=== PATIENT | female | born 1940 | race Caucasian/White ===

== ENCOUNTER → 2016-12-04 | Outpatient (CLI) | payer MEDICARE ==
--- NOTE | 2016-12-05 13:41 | MM ---
Reason for exam: screening (asymptomatic). Last mammogram was performed 1 year ago. History: Patient is postmenopausal and has history of other cancer at age 61. Family history of breast cancer in sister at age 77, breast cancer in sister at age 68, and breast cancer in paternal aunt at age 60. Benign excisional biopsy of both breasts. Taking estrogen for 27 years beginning at age 38. Physical Findings: A clinical breast exam by your physician is recommended on an annual basis and results should be correlated with mammographic findings. MG 3D Screening Mammo W/Cad Bilateral CC and MLO view(s) were taken. Prior study comparison: November 29, 2015, bilateral MG 3d screening mammo w/cad. November 25, 2014, bilateral MG screening mammo w CAD. There are scattered fibroglandular densities. Finding: There are vascular, round calcifications in both breasts. There is a chronic nodularity in the left breast. No significant changes in finding since November 29, 2015 and November 25, 2014. ASSESSMENT: Benign, BI-RAD 2 RECOMMENDATION: Routine screening mammogram of both breasts in 1 year.
== END | disposition home or self-care (01) ==
LOC: RADMAMWWP 12:47
PROVIDERS: ATTEND Internal Medicine
DX: Z12.31 Encounter for screening mammogram for malignant neoplasm of breast (principal)
CPT/HCPCS: 77063; G0202

== ENCOUNTER → 2017-08-24 | Outpatient (CLI) | payer MEDICARE ==
[2017-08-24 13:38] LABS: Anisocytosis Slight; Basophils % (A) 1 %; Eosinophils # (A) 0.1 k/uL (0-0.7); Eosinophils % (A) 2 %; HCT 37.9 % (34.0-46.0); HGB 13.3 gm/dL (11.4-16.0); Lymphocytes # (A) 2.5 k/uL (1.0-4.8); Lymphocytes % (A) 36 %; MCH 32.3 pg (25.0-35.0); MCV 92.4 fL (80.0-100.0); Mean Platelet Volume 6.6; Monocytes # (A) 0.2 k/uL (0-1.0); Monocytes % (A) 4 %; Neutrophils # (A) 3.9 k/uL (1.3-7.7); Neutrophils % (A) 57 %; Platelet Count 362 k/uL (150-450); RDW 16.7 % (11.5-15.5); WBC 6.9 k/uL (3.8-10.6)
== END | disposition home or self-care (01) ==
LOC: LABPAT 12:47
PROVIDERS: ATTEND Obstetrics & Gynecology
DX: Z01.818 Encounter for other preprocedural examination (principal); I10 Essential (primary) hypertension; R32 Unspecified urinary incontinence; R00.1 Bradycardia, unspecified; N81.10 Cystocele, unspecified; Z01.812 Encounter for preprocedural laboratory examination
CPT/HCPCS: 36415; 80051; 82565; 84520; 85025; 86850; 86900; 86901; 93005

== ENCOUNTER 2017-09-02 06:58 | Day surgery (SDC) | payer MEDICARE ==
[2017-08-29 08:54] VITALS: BMI 23.6
[~2017-09-02 06:58] MED LIST: DEXAMETHASONE SOD PHOSPHATE 10 MG/ML 1 ML VIAL IV ONE; LACTATED RINGERS 1,000 ML IV SCH; MIDAZOLAM 2 MG/2 ML VIAL IV PRN; ONDANSETRON 4 MG/2 ML VIAL IVP ONE; ceFAZolin IN SWFI 2 GM/20 ML SYRINGE IVP ONE; fentaNYL (PF) 50 MCG/ML 2 ML AMP IV PRN; metroNIDAZOLE-NS PMX 500 MG in SALINE 1 100ML.BAG IVPB ONE
[2017-09-02] MEDS ORDERED: SCOPOLAMINE 1.5MG/72HR PATCH TRANSDERM ONE (08:01)
[2017-09-02] MEDS ORDERED: CLINDAMYCIN 900 MG in DEXTROSE 5% IN WATER 50 ML IVPB STA ×2 (08:45)
[2017-09-02] MEDS ORDERED: MIDAZOLAM 2 MG/2 ML VIAL ONE (09:04)
[2017-09-02] MEDS ORDERED: PROPOFOL 10 MG/ML 20 ML VIAL IV ONE (09:04)
[2017-09-02] MEDS ORDERED: diphenhydrAMINE 50 MG/ML 1 ML VIAL ONE (09:04)
[2017-09-02] MEDS ORDERED: VASOPRESSIN 20 UNIT/ML 1 ML VIAL SQ ONE (09:27)
[2017-09-02] MEDS ORDERED: BACITRACIN 500 UNIT/GM OINT 28.4 GM TUBE TOPICAL ONE (09:33)
--- NOTE | 2017-09-02 10:01 | P.OP ---
Date of Procedure: 09/02/17 Preoperative Diagnosis: Symptomatic grade 4 cystocele Postoperative Diagnosis: Same, grade 2-3 rectocele Procedure(s) Performed: Anterior cystocele repair, cystoscopy Anesthesia: MUA Surgeon: Kateryna Schultz Estimated Blood Loss (ml): 25 IV fluids (ml): 450 Urine output (ml): 200 Pathology: none sent Condition: stable Disposition: PACU Description of Procedure: Patient is brought to the operating suite and placed in the dorsal lithotomy position. Spinal with Duramorph is given per the anesthesia staff. The appropriate timeout is performed to assure proper patient and procedural identification. 2 g of Ancef are given prophylactically. Bladder is drained for approximately 200 mL of urine after the vagina, perineal body and lower abdomen are all prepped and draped in the usual sterile fashion. Weighted speculum was placed into the vagina and the uterosacral cardinal ligament dimples are grasped with Allis clamps. The anterior vaginal mucosa is injected with a dilute Pitressin solution. A scalpel is used between the 2 uterosacral ligament complex these and the mucosa is opened. Metzenbaum scissors are used in the midline to undermine the mucosa and incise it to approximately 1.5 cm inferior to the urethra. Allis clamps are used in a fanlike fashion and the tissue was held laterally. A sponge rolled finger is used to remove the overlying mucosa from the underlying fascial plane. Morrison catheter is then placed. 2-0 Vicryl sutures used in an interrupted fashion to bring the fascial edges together in the midline thereby completely reducing the cystocele. Metzenbaum scissors are used to trim the redundant mucosa. 2-0 Vicryl suture is used to bring the edges together now in a running locking fashion for excellent reapproximation. Hemostasis is excellent. Morrison catheter is removed. Cystoscope was placed in the bladder is distended with sterile saline. The bladder mucosa is visualized in its entirety, clean and dry, no defects, no puckering, normal-appearing ostia bilaterally. Cystoscope was removed and the Morrison catheter is once again placed. The vagina is now packed with a half inch iodophor gauze with basic tracing. All sponge needle and enhancement counts are correct at the end of the procedure. Patient is brought back to recovery room in very good condition with stable vital signs including a blood pressure of 129/63, pulse 66. Complications: None
[2017-09-02] MEDS ORDERED: Acetaminophen-Codeine 300-30mg TAB PO PRN (10:02)
[2017-09-02] MEDS ORDERED: ZOLPIDEM 5 MG TAB PO PRN (10:02)
[2017-09-02] MEDS ORDERED: diphenhydrAMINE 50 MG/ML 1 ML VIAL IVP PRN (10:02)
[2017-09-02] MEDS ORDERED: LACTATED RINGERS 1,000 ML IV ONE (10:58)
[2017-09-02] MEDS ORDERED: CALCIUM CARBONATE 500 MG CHEWABLE PO PRN (18:27)
[2017-09-03 04:34] VITALS: TEMP 98.2
--- NOTE | 2017-09-03 08:01 | P.DS ---
Providers Date of admission: 09/02/17 Expected date of discharge: 09/03/17 Attending physician: Kateryna Schultz Primary care physician: [facility] Course: This is a 76-year-old female who presented with increasingly symptomatic grade 3 -4 cystocele. After instruction, she elected to proceed with surgical repair. This was done under my care yesterday, and was unremarkable. Cystoscopy was performed after the procedure to assure no bladder lacerations, primarily due to a history of bladder laceration at the time of hysterectomy many years ago. Cystoscopy was negative. Vagina was packed. Patient did receive a spinal with Duramorph with excellent analgesic results. This morning the patient appears well. She is ambulating, tolerating regular diet, and has no pain. Morrison catheter and vaginal packing had been removed and bladder training has commenced. If bladder training is successful, residual less than 100 mL, my plan is for discharge home later today. Upon discharge the patient is reminded no intercourse, tampons or douching. She will use [id number]-[id number] Aleve as needed for pain. I reminded her to void frequently, not allowing the bladder to become overdistended. She will call me with any fevers shakes or chills, pain not alleviated by [id number] products, with any vaginal bleeding, with any difficulties with voiding or defecating, or indeed with any concerns. She is judged to be in good condition today for discharge home. She will restart all of her home pain medications. Patient Condition at Discharge: Good Plan - Discharge Summary Discharge Rx Participant: Yes New Discharge Prescriptions: No Action Cholecalciferol [Vitamin D3] 1,000 unit PO DAILY Stan's Wort 300 mg PO DAILY Aspirin 325 mg PO DAILY Cyanocobalamin (Vitamin B-12) [Vitamin B-12] 1,000 mcg PO DAILY Levothyroxine Sodium [Synthroid] 50 mcg PO DAILY Estrogens, Conjugated [Premarin] 0.625 mg PO DAILY amLODIPine BESYLATE [Norvasc] 5 mg PO DAILY Hyoscyamine Sulfate [Levsin] 0.125 mg PO TID PRN PRN Reason: DIGESTION PROBLEMS" Discharge Medication List Aspirin 325 mg PO DAILY 08/29/17 [History] Cholecalciferol [Vitamin D3] 1,000 unit PO DAILY 08/29/17 [History] Cyanocobalamin (Vitamin B-12) [Vitamin B-12] 1,000 mcg PO DAILY 08/29/17 [ History] Estrogens, Conjugated [Premarin] 0.625 mg PO DAILY 08/29/17 [History] Hyoscyamine Sulfate [Levsin] 0.125 mg PO TID PRN 08/29/17 [History] Levothyroxine Sodium [Synthroid] 50 mcg PO DAILY 08/29/17 [History] Fay's Wort 300 mg PO DAILY 08/29/17 [History] amLODIPine BESYLATE [Norvasc] 5 mg PO DAILY 08/29/17 [History]
[2017-09-03] MEDS ORDERED: ACETAMINOPHEN TAB 325 MG TAB PO PRN (10:03)
--- NOTE | 2017-09-03 10:51 | P.PN ---
Progress Note - Text Progress Note Date: 09/03/17 Postoperative day 1 status post cystocele repair ,under spinal anesthesia, and intrathecal morphine given for postoperative analgesia, patient doing well, there is no anesthesia related complications, Patient had no headache, vital signs stable , Assessment and plan= postop day 1 status post , doing well there is no anesthesia related complication.
[2017-09-03 16:52] VITALS: BP 116/66; PULSE 57; RESP 18
== END 2017-09-03 15:00 | disposition home or self-care (01) ==
LOC: OR 06:58 → 4FBP 10:13 → OR 09-03 15:00
PROVIDERS: ATTEND Obstetrics & Gynecology
DX: N81.10 Cystocele, unspecified (principal); Z79.890 Hormone replacement therapy; I10 Essential (primary) hypertension; K21.9 Gastro-esophageal reflux disease without esophagitis; E07.9 Disorder of thyroid, unspecified; Z80.41 Family history of malignant neoplasm of ovary; Z80.3 Family history of malignant neoplasm of breast; Z80.0 Family history of malignant neoplasm of digestive organs; Z79.899 Other long term (current) drug therapy; Z79.82 Long term (current) use of aspirin; Z88.0 Allergy status to penicillin; Z88.2 Allergy status to sulfonamides
CPT/HCPCS: 57240; J2250; J1200; J1100; J2405; J2704; J0690; 86850; 86900; 86901

== ENCOUNTER → 2017-12-31 | Outpatient (CLI) | payer MEDICARE ==
--- NOTE | 2018-01-01 07:52 | MM ---
Reason for exam: screening (asymptomatic). Last mammogram was performed 1 year and 1 month ago. History: Patient is postmenopausal and has history of other cancer at age 61. Family history of breast cancer in sister at age 77, breast cancer in sister at age 68, and breast cancer in paternal aunt at age 60. Benign excisional biopsy of both breasts. Taking estrogen for 27 years beginning at age 38. Physical Findings: A clinical breast exam by your physician is recommended on an annual basis and results should be correlated with mammographic findings. MG 3D Screening Mammo W/Cad Bilateral CC and MLO view(s) were taken. Prior study comparison: December 04, 2016, bilateral MG 3d screening mammo w/cad. November 29, 2015, bilateral MG 3d screening mammo w/cad. The breast tissue is heterogeneously dense. This may lower the sensitivity of mammography. Finding: There are typically benign vascular, round calcifications in both breasts. There is a chronic nodularity in the left breast. There is no discrete abnormality. ASSESSMENT: Benign, BI-RAD 2 RECOMMENDATION: Routine screening mammogram of both breasts in 1 year.
== END | disposition home or self-care (01) ==
LOC: RADMAMWWP 09:49
PROVIDERS: ATTEND Internal Medicine
DX: Z12.31 Encounter for screening mammogram for malignant neoplasm of breast (principal)
CPT/HCPCS: 77063; 77067

== ENCOUNTER 2018-03-12 09:37 | Day surgery (SDC) | payer MEDICARE ==
[2018-03-10 09:53] VITALS: BMI 22.6
[2018-03-12 11:06] VITALS: TEMP 96.6
[2018-03-12] MEDS ORDERED: LACTATED RINGERS 1,000 ML IV ONE (11:08)
[2018-03-12] MEDS ORDERED: LIDOCAINE 1% INJ 10MG/ML (20 ML MDV) ONE (11:23)
[2018-03-12] MEDS ORDERED: PROPOFOL 10 MG/ML 20 ML VIAL IV ONE (11:23)
--- NOTE | 2018-03-12 11:59 | P.PCN ---
Date of Procedure: 03/12/18 Procedure(s) Performed: Brief history: Patient is a pleasant 77-year-old white female, scheduled for an elective upper endoscopy as well as colonoscopy as a part of evaluation of intermittent dysphagia to solids and screening for colorectal neoplasia Procedure performed: Esophagogastroduodenoscopy with biopsy Colonoscopy with snare polypectomy Preoperative diagnosis: Diminutive dysphagia to solids Screening for colon cancer Anesthesia: MAC Procedure: After informed consent was obtained from the patient was brought into the endoscopy unit and IV sedation was administered by anesthesia under continuous monitoring. Initially upper endoscopy was done. The Olympus GF 160 video endoscope was inserted inserted into the mouth and esophagus intubated without any difficulty and was gradually advanced into the stomach and duodenum and carefully examined. The bulb and second part of the duodenum appeared normal. The scope was then withdrawn into the stomach adequately insufflated with air and upon careful examination the antrum had mild gastritis and biopsies were done from this area. The body, cardia and fundus appeared normal. The scope was then withdrawn into the esophagus. The GE junction was located at 40 cm to the incisors. It appeared regular with no erythema erosions or ulcerations. biopsies were done from the distal esophagus. Rest of the esophagus appeared normal. Patient tolerated the procedure well. At this time the patient continued to remain sedation. Initial digital rectal examination was normal. Olympus CF 160 video colonoscope was then inserted into the rectum and gradually advanced to the cecum without any difficulty. Careful examination was performed as the scope was gradually being withdrawn. The prep was excellent. The cecum, ascending colon, transverse colon, appeared normal. In the descending colon there was a 1 cm polyp removed by snare polypectomy. There are scattered left-sided diverticulosis seen. The rest of the descending colon, sigmoid colon and rectum appeared normal. Retroflexion was performed in the rectum and no lesions were noted. Patient tolerated the procedure well. Impression: 1. Upper endoscopy revealed mild antral gastritis but no evidence of esophagitis or esophageal stricture 2. Colonoscopy revealed 1 cm descending colon polyp status post snare polypectomy and scattered sigmoid diverticulosis Recommendations: Findings of this examination were discussed with the patient as well as her family. She was advised to follow with the biopsy results. She'll be seen in the office in 3-4 weeks.
[2018-03-12] MEDS ORDERED: IV FLUID CONTINUATION 1,000 ML IV ONE ×2 (12:19)
[2018-03-12] MEDS ORDERED: hydrALAZINE HCL 20 MG/ML 1 ML VIAL IVP ONE ×2 (12:55→13:40)
[2018-03-12] MEDS ORDERED: ONDANSETRON 4 MG/2 ML VIAL IVP ONE (13:43)
[2018-03-12 14:10] VITALS: BP 136/62; PULSE 72; RESP 20
== END 2018-03-12 14:15 | disposition home or self-care (01) ==
LOC: ORWHC2ENDO 09:37
PROVIDERS: ATTEND Internal Medicine Gastroenterology
DX: Z12.11 Encounter for screening for malignant neoplasm of colon (principal); K29.50 Unspecified chronic gastritis without bleeding; K20.9 Esophagitis, unspecified; D12.4 Benign neoplasm of descending colon; K57.30 Diverticulosis of large intestine without perforation or abscess without bleeding; I10 Essential (primary) hypertension; E07.9 Disorder of thyroid, unspecified; Z79.890 Hormone replacement therapy; Z79.899 Other long term (current) drug therapy; Z88.0 Allergy status to penicillin; Z88.2 Allergy status to sulfonamides
CPT/HCPCS: 88305; 45385; 43239; J0360; J2405; J2001; J2704

== ENCOUNTER → 2018-10-07 | Outpatient (CLI) | payer MEDICARE ==
--- NOTE | 2018-10-07 11:52 | CT ---
EXAMINATION TYPE: CT neck chest w con DATE OF EXAM: 10/07/2018 COMPARISON: None HISTORY: 77-year-old female chest lump, mass, Right sided lower neck swelling TECHNIQUE: Contiguous axial scanning of the neck and chest performed with IV Contrast, patient inject ed with 100 mL of Isovue 300. Coronal/sagittal reconstructions performed. CT DLP: 943 mGycm Automated exposure control for dose reduction was used. FINDINGS: Neck: Visualized intracranial structures, orbits and globes, paranasal sinuses, mastoid air cells appear cl ear. Postresection changes involving the right mastoid process. The nasopharynx is clear. Mild lingual tonsillar hypertrophy. Otherwise, the oropharynx is clear. Epiglottis and prevertebral soft tissues are within normal limits. The glottic and subglottic structures as well as the tracheal column appear clear. Thyroid gland appears somewhat atrophic. The submandibular and mildly atrophic parotid glands appear unremarkable. There is some fat stranding of the subcutaneous tissues along the medial right clavicular and superja cent base of the neck region. Some mild fat stranding extends to the subcutaneous adipose of the medi al upper right chest wall. There is asymmetric capsular distention of the right sternoclavicular joint with possible joint effus ion and sclerosis and joint space widening and possible subtle marginal erosion at the right sternocl avicular joint, referred to axial image 70. Moderate spondylotic change C5 C7 levels. Grade 1 anterolisthesis at C7-T1. CHEST: The above-mentioned findings centered on the right sternoclavicular joint are again demonstrated. Heart normal size without pericardial effusion. Aorta normal caliber with conventional arch vessel branching anatomy. No thoracic lymphadenopathy. Mild biapical pleural-parenchymal scarring. No consolidation or pleural effusion. Strandy areas of atelectasis in lower lungs. There is a trace r ight effusion noted. Small hiatal hernia. Few scattered hepatic cysts measuring up to 1.3 cm. Wedge-shaped areas of hyperv ascularity along the anterior left liver lobe, axial image 51 and 59 measuring up to 5.7 cm, suspecte d perfusional variation. There seems to be some concentric wall thickening of the duodenal bulb regio n possibly due to nondistention, refer to axial series 6 image 12 cholecystectomy clips. Bones: Endplate spondylosis mid to lower thoracic spine. Changes at the right SC joint as mentioned helena landon. IMPRESSION: 1. INFLAMMATORY CHANGES CENTERED AT THE RIGHT STERNOCLAVICULAR JOINT WITH OVERLYING SOFT TISSUE SWELL ING. THE SC JOINT CAPSULE IS DISTENDED POSSIBLY WITH JOINT EFFUSION AND THERE IS BONY SCLEROSIS ON EI THER SIDE OF THE JOINT AND SUGGESTION OF SUBTLE OSSEOUS EROSIONS. CORRELATE FOR POSSIBLE INFLAMMATORY OR SEPTIC ARTHROPATHY OF THE RIGHT STERNOCLAVICULAR JOINT. ASSESSMENT OF WBC COUNT AND INFLAMMATORY MARKERS WOULD BE HELPFUL. 2. TRACE RIGHT PLEURAL EFFUSION. 3. PERIPHERALLY LOCATED HEPATIC LESIONS SUSPECTED TO REPRESENT PERFUSION DILATATION/VASCULAR SHUNTING . CONCENTRIC WALL THICKENING OF THE DUODENAL BULB REGION WHICH MAY BE DUE TO NONDISTENTION. RECOMMEND DEDICATED CONTRAST ENHANCED CT OF THE ABDOMEN/PELVIS TO FURTHER EVALUATE THESE FINDINGS ON A NONEMER GENT BASIS.
== END | disposition home or self-care (01) ==
LOC: RADCTMAIN 09:58
PROVIDERS: ATTEND Internal Medicine
DX: M79.89 Other specified soft tissue disorders (principal); M25.811 Other specified joint disorders, right shoulder; Z88.0 Allergy status to penicillin; Z88.2 Allergy status to sulfonamides
CPT/HCPCS: 82565; 84520; 70491; 71260; 36415; Q9967

== ENCOUNTER → 2019-01-01 | Outpatient (CLI) | payer MEDICARE ==
--- NOTE | 2019-01-02 11:24 | MM ---
Reason for exam: screening (asymptomatic). Last mammogram was performed 1 year ago. History: Patient is postmenopausal and has history of other cancer at age 61. Family history of breast cancer in sister at age 77, breast cancer in sister at age 68, and breast cancer in paternal aunt at age 60. Benign excisional biopsy of both breasts. Taking estrogen for 27 years beginning at age 38. Physical Findings: A clinical breast exam by your physician is recommended on an annual basis and results should be correlated with mammographic findings. MG 3D Screening Mammo W/Cad Bilateral CC and MLO view(s) were taken. Prior study comparison: December 31, 2017, bilateral MG 3d screening mammo w/cad. December 04, 2016, bilateral MG 3d screening mammo w/cad. The breast tissue is heterogeneously dense. This may lower the sensitivity of mammography. Stable benign calcifications. There is no discrete abnormality. No significant changes when compared with prior studies. ASSESSMENT: Benign, BI-RAD 2 RECOMMENDATION: Routine screening mammogram of both breasts in 1 year.
== END | disposition home or self-care (01) ==
LOC: RADMAMWWP 09:59
PROVIDERS: ATTEND Internal Medicine
DX: Z12.31 Encounter for screening mammogram for malignant neoplasm of breast (principal)
CPT/HCPCS: 77063; 77067

== ENCOUNTER → 2019-03-06 | Outpatient (CLI) | payer MEDICARE ==
--- NOTE | 2019-03-06 11:17 | FL ---
EXAMINATION TYPE: FL barium swallow DATE OF EXAM: 03/06/2019 COMPARISON: None HISTORY: Food getting stuck proximal esophagus especially with meat TECHNIQUE: A double air contrast esophagram study is performed. FINDINGS: Esophagus dilates to normal caliber has normal contour to the gastroesophageal junction. Ga stroesophageal junction opens to normal caliber. Couple secondary and tertiary contractions are evide nt during this exam. There is incomplete stripping of the esophageal bolus. No persistence of the cri copharyngeus muscle is evident. No persistent focal stenosis is evident IMPRESSIONS: 1. Presbyesophagus.
== END | disposition home or self-care (01) ==
LOC: RADUSWWP 09:49
PROVIDERS: ATTEND Internal Medicine
DX: K22.8 Other specified diseases of esophagus (principal)
CPT/HCPCS: 74220

== ENCOUNTER → 2020-02-03 | Outpatient (CLI) | payer MEDICARE ==
--- NOTE | 2020-02-04 08:51 | MM ---
Reason for exam: screening (asymptomatic). Last mammogram was performed 1 year and 1 month ago. History: Patient is postmenopausal and has history of other cancer at age 61. Family history of breast cancer in sister at age 77, breast cancer in sister at age 68, and breast cancer in paternal aunt at age 60. Benign excisional biopsy of both breasts. Taking estrogen for 27 years beginning at age 38. Physical Findings: A clinical breast exam by your physician is recommended on an annual basis and results should be correlated with mammographic findings. MG 3D Screening Mammo W/Cad Bilateral CC and MLO view(s) were taken. Prior study comparison: January 01, 2019, bilateral MG 3d screening mammo w/cad. December 31, 2017, bilateral MG 3d screening mammo w/cad. There are scattered fibroglandular densities. Benign appearing bilateral calcifications. There is chronic nodularity in the left breast. No significant changes when compared with prior studies. ASSESSMENT: Benign, BI-RAD 2 RECOMMENDATION: Routine screening mammogram of both breasts in 1 year.
== END | disposition home or self-care (01) ==
LOC: RADMAMWWP 10:13
PROVIDERS: ATTEND Internal Medicine
DX: Z12.31 Encounter for screening mammogram for malignant neoplasm of breast (principal)
CPT/HCPCS: 77063; 77067

== ENCOUNTER 2020-05-30 13:04 | Emergency (ER) | payer MEDICARE ==
[2020-05-30] MEDS ORDERED: SODIUM CHLORIDE 0.9% 1,000 ML IV STA (13:49)
[2020-05-30] MEDS ORDERED: ONDANSETRON 4 MG/2 ML VIAL IVP STA (14:08)
--- NOTE | 2020-05-30 14:30 | ED ---
Nausea/Vomiting/Diarrhea HPI - General Chief complaint: Nausea/Vomiting/Diarrhea Stated complaint: COVID+/vomiting Time Seen by Provider: 05/30/20 13:57 Source: patient Mode of arrival: wheelchair Limitations: no limitations - History of Present Illness Initial comments: Patient is an 79-year-old female, recently diagnosed with Covid, presenting to the emergency Department with complaints of nausea and vomiting that started yesterday. Patient states her symptoms seem to be mild at this time, she is not really coughing very much, no shortness of breath or chest pain. She states that since yesterday she's been nauseous and having many episodes of vomiting, she is unable to eat very much the last 3-4 days. Patient denies any abdominal pain, some mild cramping but nothing that's continuous. She denies any dysuria, she did have 2 episodes of diarrhea previously, but none today. She denies any fever, chills. She has no further complaints at this time. Upon arrival to the ER, her vitals are stable. - Related Data Home Medications Medication Instructions Recorded Confirmed Aspirin 325 mg PO DAILY 08/29/17 03/12/18 Cholecalciferol [Vitamin D3] 1,000 unit PO DAILY 08/29/17 03/12/18 Cyanocobalamin (Vitamin B-12) 1,000 mcg PO DAILY 08/29/17 03/12/18 [Vitamin B-12] Estrogens, Conjugated [Premarin] 0.625 mg PO DAILY 08/29/17 03/12/18 Hyoscyamine Sulfate [Levsin] 0.125 mg PO TID PRN 08/29/17 03/12/18 Levothyroxine Sodium [Synthroid] 50 mcg PO DAILY 08/29/17 03/12/[address] [place]'s Wort 300 mg PO DAILY 08/29/17 03/12/18 amLODIPine BESYLATE [Norvasc] 5 mg PO DAILY 08/29/17 03/12/18 Dicyclomine [Bentyl] 10 mg PO DAILY 03/10/18 03/12/18 Previous Rx's Medication Instructions Recorded Ondansetron Odt [Zofran Odt] 4 mg PO Q8HR PRN #10 tab 05/30/20 Allergies Allergy/AdvReac Type Severity Reaction Status Date / Time Penicillins Allergy Rash/Hives Verified 03/12/18 11:02 Sulfa (Sulfonamide Allergy Rash/Hives Verified 03/12/18 11:02 Antibiotics) Review of Systems ROS Statement: Those systems with pertinent positive or pertinent negative responses have been documented in the HPI. ROS Other: All systems not noted in ROS Statement are negative. Past Medical History Past Medical History: Cancer, Hypertension, Thyroid Disorder Additional Past Medical History / Comment(s): IBS, COVID 19+ 05/29/2020 History of Any Multi-Drug Resistant Organisms: None Reported Past Surgical History: Adenoidectomy, Appendectomy, Bladder Surgery, Breast Surgery, Section, Cholecystectomy, Hysterectomy, Tonsillectomy Additional Past Surgical History / Comment(s): BLADDER SUSPENSION. MASTOID SX AGE 14. BILAT LUMPECTOMY-BENIGN. COLONOSCOPY,. BILAT CATARACT SX. BASAL CELL CANCER REMOVED FROM FACE Past Anesthesia/Blood Transfusion Reactions: Postoperative Nausea & Vomiting (P ONV) Past Psychological History: No Psychological Hx Reported Past Alcohol Use History: None Reported Past Drug Use History: None Reported - Past Family History Mother Family Medical History: Cancer Additional Family Medical History / Comment(s): STOMACH CANCER Sister(s) Family Medical History: Cancer Brother(s) Family Medical History: Cancer General Exam - General Exam Comments Initial Comments: GENERAL: Patient is well-developed and well-nourished. Patient is nontoxic and in no acute distress. HEAD: Atraumatic, normocephalic. EYES: Pupils equal round and reactive to light, extraocular movements intact, sclera anicteric, conjunctiva are normal. Eyelids were unremarkable. ENT: TMs normal, nares patent, oropharynx clear without exudates. Moist mucous membranes. NECK: Normal range of motion, supple without lymphadenopathy or JVD. LUNGS: Unlabored respirations. Breath sounds clear to auscultation bilaterally and equal. No wheezes rales or rhonchi. HEART: Regular rate and rhythm without murmurs, rubs or gallops. ABDOMEN: Soft, nontender, normoactive bowel sounds. No guarding, no rebound. No masses appreciated. : Deferred MUSCULOSKELETAL: Normal extremities with adequate strength and normal range of motion, no pitting or edema. No clubbing or cyanosis. NEUROLOGICAL: Patient is alert and oriented x 3. Motor and sensory are also intact. Cranial nerves II through XII grossly intact. Symmetrical smile. Normal speech, normal gait. PSYCH: Normal mood, normal affect. SKIN: Warm, Dry, normal turgor, no rashes or lesions noted. Limitations: no limitations Course Vital Signs 05/30/20 05/30/20 13:23 15:20 Temperature 98.3 F 98.1 F Pulse Rate 64 69 Respiratory 20 18 Rate Blood Pressure 150/81 167/72 O2 Sat by Pulse 97 100 Oximetry Medical Decision Making - Medical Decision Making Patient is a 79-year-old female, recently diagnosed with coving, presenting with nausea and vomiting 2 days. Her vital signs are stable afebrile. She is having no chest pain, no shortness of breath, no coughing. No pain on palpation. EKG shows no acute process, chest x-ray is normal. Labs show a normal white count, creatinine is 1.16, lactic acid is normal at 1.3, troponin is negative. Urine shows no evidence of infection, 1+ ketones. Patient received a fluid bolus as well as Zofran. She has been resting completely the ER, nausea has gone away. I discussed with patient that her workup today is normal, this is a common side effect of her infection. I did recommend continuing with Zofran as needed for the nausea. Continue to increase her fluid intake. Patient is stable for discharge. She is in agreement with this plan of care. Return parameters were discussed with the patient and she verbalized understanding. Case discussed with Dr. Nicole. - Lab Data Result diagrams: 05/30/20 14:10 05/30/20 14:10 Lab Results 05/30/20 05/30/20 05/30/20 Range/Units 14:10 14:10 14:10 WBC 5.9 (3.8-10.6) k/uL RBC 4.23 (3.80-5.40) m/uL Hgb 13.6 (11.4-16.0) gm/dL Hct 39.4 (34.0-46.0) % MCV 93.2 (80.0-100.0) fL MCH 32.2 (25.0-35.0) pg MCHC 34.5 (31.0-37.0) g/dL RDW 15.0 (11.5-15.5) % Plt Count 242 (150-450) k/uL MPV 7.3 Neutrophils % 80 % Lymphocytes % 13 % Monocytes % 5 % Eosinophils % 1 % Basophils % 0 % Neutrophils # 4.8 (1.3-7.7) k/uL Lymphocytes # 0.8 L (1.0-4.8) k/uL Monocytes # 0.3 (0-1.0) k/uL Eosinophils # 0.0 (0-0.7) k/uL Basophils # 0.0 (0-0.2) k/uL PT 9.7 (9.0-12.0) sec INR 0.9 (<1.2) APTT 24.4 (22.0-30.0) sec Sodium 131 L (137-145) mmol/L Potassium 3.9 (3.5-5.1) mmol/L Chloride 96 L (98-107) mmol/L Carbon Dioxide 27 (22-30) mmol/L Anion Gap 8 mmol/L BUN 25 H (7-17) mg/dL Creatinine 1.16 H (0.52-1.04) mg/dL Est GFR (CKD-EPI)AfAm 51 (>60 ml/min/1.73 sqM) Est GFR (CKD-EPI)NonAf 44 (>60 ml/min/1.73 sqM) Glucose 118 H (74-99) mg/dL Plasma Lactic Acid Yung (0.7-2.0) mmol/L Calcium 9.4 (8.4-10.2) mg/dL Magnesium 1.9 (1.6-2.3) mg/dL Total Bilirubin 0.7 (0.2-1.3) mg/dL AST 42 H (14-36) U/L ALT 18 (4-34) U/L Alkaline Phosphatase 73 (38-126) U/L Troponin I (0.000-0.034) ng/mL Total Protein 7.4 (6.3-8.2) g/dL Albumin 4.3 (3.5-5.0) g/dL Amylase 58 (30-110) U/L Lipase 105 (23-300) U/L Urine Color Urine Appearance (Clear) Urine pH (5.0-8.0) Ur Specific [place] (1.001-1.035) Urine Protein (Negative) Urine Glucose (UA) (Negative) Urine Ketones (Negative) Urine Blood (Negative) Urine Nitrite (Negative) Urine Bilirubin (Negative) Urine Urobilinogen (<2.0) mg/dL Ur Leukocyte Esterase (Negative) Urine RBC (0-5) /hpf Urine WBC (0-5) /hpf Ur Squamous Epith Cells (0-4) /hpf Hyaline Casts (0-2) /lpf Urine Mucus (None) /hpf 05/30/20 05/30/20 05/30/20 Range/Units 14:10 14:10 15:50 WBC (3.8-10.6) k/uL RBC (3.80-5.40) m/uL Hgb (11.4-16.0) gm/dL Hct (34.0-46.0) % MCV (80.0-100.0) fL MCH (25.0-35.0) pg MCHC (31.0-37.0) g/dL RDW (11.5-15.5) % Plt Count (150-450) k/uL MPV Neutrophils % % Lymphocytes % % Monocytes % % Eosinophils % % Basophils % % Neutrophils # (1.3-7.7) k/uL Lymphocytes # (1.0-4.8) k/uL Monocytes # (0-1.0) k/uL Eosinophils # (0-0.7) k/uL Basophils # (0-0.2) k/uL PT (9.0-12.0) sec INR (<1.2) APTT (22.0-30.0) sec Sodium (137-145) mmol/L Potassium (3.5-5.1) mmol/L Chloride (98-107) mmol/L Carbon Dioxide (22-30) mmol/L Anion Gap mmol/L BUN (7-17) mg/dL Creatinine (0.52-1.04) mg/dL Est GFR (CKD-EPI)AfAm (>60 ml/min/1.73 sqM) Est GFR (CKD-EPI)NonAf (>60 ml/min/1.73 sqM) Glucose (74-99) mg/dL Plasma Lactic Acid Yung 1.3 (0.7-2.0) mmol/L Calcium (8.4-10.2) mg/dL Magnesium (1.6-2.3) mg/dL Total Bilirubin (0.2-1.3) mg/dL AST (14-36) U/L ALT (4-34) U/L Alkaline Phosphatase (38-126) U/L Troponin I <0.012 (0.000-0.034) ng/mL Total Protein (6.3-8.2) g/dL Albumin (3.5-5.0) g/dL Amylase (30-110) U/L Lipase (23-300) U/L Urine Color Yellow Urine Appearance Cloudy H (Clear) Urine pH 5.5 (5.0-8.0) Ur Specific [place] 1.012 (1.001-1.035) Urine Protein Trace H (Negative) Urine Glucose (UA) Negative (Negative) Urine Ketones 1+ H (Negative) Urine Blood Negative (Negative) Urine Nitrite Negative (Negative) Urine Bilirubin Negative (Negative) Urine Urobilinogen <2.0 (<2.0) mg/dL Ur Leukocyte Esterase Negative (Negative) Urine RBC <1 (0-5) /hpf Urine WBC 1 (0-5) /hpf Ur Squamous Epith Cells 4 (0-4) /hpf Hyaline Casts 6 H (0-2) /lpf Urine Mucus Rare H (None) /hpf - EKG Data EKG Comments: Normal sinus rhythm, normal ECG, ventricular rate 61, UT interval 160, QTC 456. No signs of acute process. Disposition Clinical Impression: Dehydration, COVID-19, Nausea & vomiting Disposition: HOME SELF-CARE Condition: Stable Instructions (If sedation given, give patient instructions): Acute Nausea and Vomiting (ED) Additional Instructions: Please return to the Emergency Department if symptoms worsen or any other concerns. Made a Zofran as needed for additional nausea. Continue to increase fluid intake, frequent sips of water. Follow-up with your regular doctor. Prescriptions: Ondansetron Odt [Zofran Odt] 4 mg PO Q8HR PRN #10 tab PRN Reason: Nausea Is patient prescribed a controlled substance at d/c from ED?: No Referrals: Denny He MD [Primary Care Provider] - 1-2 days
[2020-05-30 14:40] LABS: Albumin 4.3 g/dL (3.5-5.0); Calcium 9.4 mg/dL (8.4-10.2); Magnesium 1.9 mg/dL (1.6-2.3); Potassium 3.9 mmol/L (3.5-5.1); Total Bilirubin 0.7 mg/dL (0.2-1.3); Total Protein 7.4 g/dL (6.3-8.2)
[2020-05-30 14:42] LABS: INR 0.9 (<1.2); Partial Thromboplastin Time 24.4 sec (22.0-30.0); Prothrombin Time 9.7 sec (9.0-12.0)
--- NOTE | 2020-05-30 14:46 | XR ---
EXAMINATION TYPE: XR chest 2V DATE OF EXAM: 05/30/2020 COMPARISON: NONE HISTORY: Shortness of breath TECHNIQUE: Frontal and lateral views of the chest are obtained. FINDINGS: Scattered senescent parenchymal changes noted. Hyperinflation compatible with COPD. No evidence for infiltrate. No evidence for atelectasis. Heart size is stable. Mediastinal structures are stable and grossly unremarkable. No evidence for hilar prominence. Degenerative changes dorsal spine. IMPRESSION: 1. No evidence for acute pulmonary disease.
[2020-05-30 14:52] LABS: Basophils % (A) 0 %; Eosinophils % (A) 1 %; HCT 39.4 % (34.0-46.0); HGB 13.6 gm/dL (11.4-16.0); Lymphocytes # (A) 0.8 k/uL (1.0-4.8); Lymphocytes % (A) 13 %; MCH 32.2 pg (25.0-35.0); MCHC 34.5 g/dL (31.0-37.0); MCV 93.2 fL (80.0-100.0); Mean Platelet Volume 7.3; Monocytes # (A) 0.3 k/uL (0-1.0); Monocytes % (A) 5 %; Neutrophils # (A) 4.8 k/uL (1.3-7.7); Neutrophils % (A) 80 %; Platelet Count 242 k/uL (150-450); RBC 4.23 m/uL (3.80-5.40); WBC 5.9 k/uL (3.8-10.6)
[2020-05-30 15:23] VITALS: BP 167/72; PULSE 69; RESP 18; TEMP 98.1
[2020-05-30 15:58] LABS: Appearance,Urine Cloudy (Clear); Bilirubin,Urine Negative (Negative); Blood,Urine Negative (Negative); Color,Urine Yellow; Glucose,Urine (UA) Negative (Negative); Hyaline Casts,Urine 6 /lpf (0-2); Ketones,Urine 1+ (Negative); Leukocyte Esterase,Urine Negative (Negative); Mucus,Urine Rare /hpf; Nitrite,Urine Negative (Negative); PH, Urine 5.5 (5.0-8.0); Protein,Urine Trace (Negative); RBC,Urine <1 /hpf (0-5); Specific Gravity,Urine 1.012 (1.001-1.035); Squamous Epithelial Cell,Urine 4 /hpf (0-4); Urobilinogen,Urine <2.0 mg/dL (<2.0); WBC,Urine 1 /hpf (0-5)
== END 2020-05-30 16:32 | disposition home or self-care (01) ==
LOC: EC 13:04
DX: U07.1 COVID-19 (principal); R11.2 Nausea with vomiting, unspecified; E86.0 Dehydration; I10 Essential (primary) hypertension; E07.9 Disorder of thyroid, unspecified; K58.9 Irritable bowel syndrome, unspecified; Z79.82 Long term (current) use of aspirin; Z79.899 Other long term (current) drug therapy; Z79.890 Hormone replacement therapy; Z88.2 Allergy status to sulfonamides; Z88.0 Allergy status to penicillin; Z85.828 Personal history of other malignant neoplasm of skin; Z90.49 Acquired absence of other specified parts of digestive tract; Z90.89 Acquired absence of other organs
CPT/HCPCS: 36415; 93005; 80053; 82150; 83605; 83690; 83735; 84484; 85025; 85610; 85730; 81001; 71046; 99284; 96374; 96361; J2405

== ENCOUNTER 2020-06-03 21:11 | Inpatient (IN) | payer MEDICARE ==
[2020-06-03] MEDS ORDERED: DEXAMETHASONE SOD PHOSPHATE 4 MG/ML 1 ML VIAL IV STA (21:59)
--- NOTE | 2020-06-03 21:59 | ED ---
SOB HPI - General Source: patient Mode of arrival: wheelchair Limitations: no limitations <Lawanda Ruiz - Last Filed: 06/04/20 00:14> <Darron Elias - Last Filed: 06/04/20 00:46> - General Chief Complaint: Shortness of Breath Stated Complaint: +COVID, Low O2 levels Time Seen by Provider: 06/03/20 21:21 - History of Present Illness Initial Comments: 79-year-old feel presenting today for chief complaint of possible low oxygen with [place] 19 infection. Patient states that she was recently diagnosed with comfortable at 17. She states most her symptoms have been nausea and vomiting. She states right now her nausea and vomiting seemed to be controlled she states she had some increasing shortness breath today and was concerned of her oxygen levels. Patient states she did not measure option levels at home she denies any chest pain. Deep inspiration hemoptysis or leg swelling calf tenderness. Patient denies any headaches neck stiffness she states she is generalized body aches. denies chest pressure, jaw or arm pain. Pt does not appear in distress on arrival. oyxgen 93% on RA. (Lawanda Ruiz) - Related Data Home Medications Medication Instructions Recorded Confirmed Aspirin 325 mg PO DAILY 08/29/17 06/03/20 Cholecalciferol [Vitamin D3] 1,000 unit PO DAILY 08/29/17 06/03/20 Cyanocobalamin (Vitamin B-12) 1,000 mcg PO DAILY 08/29/17 06/03/20 [Vitamin B-12] Estrogens, Conjugated [Premarin] 0.625 mg PO DAILY 08/29/17 06/03/20 Hyoscyamine Sulfate [Levsin] 0.125 mg PO TID PRN 08/29/17 06/03/20 Levothyroxine Sodium [Synthroid] 50 mcg PO DAILY 08/29/17 06/03/20 [place] Wort 300 mg PO DAILY 08/29/17 06/03/20 amLODIPine BESYLATE [Norvasc] 5 mg PO DAILY 08/29/17 06/03/20 Dicyclomine [Bentyl] 20 mg PO DAILY 06/03/20 06/03/20 Ondansetron [Zofran] 4 mg PO Q6H PRN 06/03/20 06/03/20 Oxybutynin Chloride [Ditropan] 5 mg PO DAILY 06/03/20 06/03/20 Allergies Allergy/AdvReac Type Severity Reaction Status Date / Time Penicillins Allergy Rash/Hives Verified 06/03/20 21:49 Sulfa (Sulfonamide Allergy Rash/Hives Verified 06/03/20 21:49 Antibiotics) Review of Systems ROS Other: All systems not noted in ROS Statement are negative. <Kaia Ruizdarrel Sanders - Last Filed: 06/04/20 00:14> ROS Other: All systems not noted in ROS Statement are negative. <Darron Elias - Last Filed: 06/04/20 00:46> ROS Statement: Those systems with pertinent positive or pertinent negative responses have been documented in the HPI. Past Medical History Past Medical History: Cancer, Hypertension, Thyroid Disorder Additional Past Medical History / Comment(s): IBS, COVID 19+ 05/29/2020 History of Any Multi-Drug Resistant Organisms: None Reported Past Surgical History: Adenoidectomy, Appendectomy, Bladder Surgery, Breast Surgery, Section, Cholecystectomy, Hysterectomy, Tonsillectomy Additional Past Surgical History / Comment(s): BLADDER SUSPENSION. MASTOID SX AGE 14. BILAT LUMPECTOMY-BENIGN. COLONOSCOPY,. BILAT CATARACT SX. BASAL CELL CANCER REMOVED FROM FACE Past Anesthesia/Blood Transfusion Reactions: Postoperative Nausea & Vomiting (PONV) Past Psychological History: No Psychological Hx Reported Smoking Status: Never smoker Past Alcohol Use History: None Reported Past Drug Use History: None Reported - Past Family History Mother Family Medical History: Cancer Additional Family Medical History / Comment(s): STOMACH CANCER Sister(s) Family Medical History: Cancer Brother(s) Family Medical History: Cancer <ShawnamyLawanda L - Last Filed: 06/04/20 00:14> General Exam Limitations: no limitations <ShawnamyLawanda L - Last Filed: 06/04/20 00:14> - General Exam Comments Initial Comments: General: The patient is awake and alert, in no distress Eye: +3 mm pupils are equal, round and reactive to light, extra-ocular movements are intact. No nystagmus. There is normal conjunctiva bilaterally. No signs of icterus. Ears, nose, mouth and throat: There are moist mucous membranes and no oral lesions. Neck: The neck is supple, there is no tenderness or JVD. No nuchal rigidity Cardiovascular: There is a regular rate and rhythm. No murmur, rub or gallop is appreciated. Respiratory: Respirations are non-labored, breath sounds are equal. No wheezes, stridor, rales. Some rhonchi Gastrointestinal: Soft, non-distended, non-tender abdomen without masses or organomegaly noted. There is no rebound or guarding present. Musculoskeletal: Normal ROM, no tenderness. Strength 5/5. Sensation intact. Radial pulses equal bilaterally 2+. Neurological: A&O x 3. CN II-XII intact, There are no obvious motor or sensory deficits. Coordination appears grossly intact. Speech is normal. Skin: Skin is warm and dry and no rashes or lesions are noted. No LE edema. no calf pain Psychiatric: Cooperative, appropriate mood & affect, normal judgment. (Lawanda Ruiz) Course Vital Signs 06/03/20 06/03/20 06/03/20 21:15 22:07 22:47 Temperature 99.2 F Pulse Rate 72 66 64 Respiratory 18 18 Rate Blood Pressure 142/69 145/74 O2 Sat by Pulse 93 L 97 99 Oximetry Medical Decision Making - Lab Data Result diagrams: 06/03/20 21:45 06/03/20 21:31 <Lawanda Ruiz - Last Filed: 06/04/20 00:14> - Lab Data Result diagrams: 06/03/20 21:45 06/03/20 21:31 <Darron Elias - Last Filed: 06/04/20 00:46> - Medical Decision Making covid + recent nausea/vomiting/diarrhea. pt states that is better today. cc dyspnea. No PE. B/l peripheral patchy infiltrates felt to likely be due to viral pneumonia. pt 93% on RA. mild hypoxia. will be admitted overnight for hydration and monitoring. patient agreeable to admission and care plan. (Lawanda Ruiz) I saw this patient in conjunction with the physician operations assistant. I performed independent history and physical exam. Agree with case management. (Darron Elias) - Lab Data Lab Results 06/03/20 06/03/20 06/03/20 Range/Units 21:31 21:45 21:45 WBC 6.6 (3.8-10.6) k/uL RBC 4.34 (3.80-5.40) m/uL Hgb 13.5 (11.4-16.0) gm/dL Hct 39.9 (34.0-46.0) % MCV 92.1 (80.0-100.0) fL MCH 31.2 (25.0-35.0) pg MCHC 33.8 (31.0-37.0) g/dL RDW 12.3 (11.5-15.5) % Plt Count 258 (150-450) k/uL MPV 7.4 Neutrophils % 73 % Lymphocytes % 19 % Monocytes % 5 % Eosinophils % 1 % Basophils % 1 % Neutrophils # 4.9 (1.3-7.7) k/uL Lymphocytes # 1.3 (1.0-4.8) k/uL Monocytes # 0.3 (0-1.0) k/uL Eosinophils # 0.0 (0-0.7) k/uL Basophils # 0.0 (0-0.2) k/uL PT 9.5 (9.0-12.0) sec INR 0.9 (<1.2) APTT 24.6 (22.0-30.0) sec D-Dimer 1.50 H (<0.60) mg/L FEU Sodium 131 L (137-145) mmol/L Potassium 3.9 (3.5-5.1) mmol/L Chloride 95 L (98-107) mmol/L Carbon Dioxide 29 (22-30) mmol/L Anion Gap 7 mmol/L BUN 24 H (7-17) mg/dL Creatinine 1.08 H (0.52-1.04) mg/dL Est GFR (CKD-EPI)AfAm 56 (>60 ml/min/1.73 sqM) Est GFR (CKD-EPI)NonAf 48 (>60 ml/min/1.73 sqM) Glucose 102 H (74-99) mg/dL Plasma Lactic Acid [place]ung (0.7-2.0) mmol/L Calcium 8.7 (8.4-10.2) mg/dL Magnesium 1.9 (1.6-2.3) mg/dL Total Bilirubin 0.5 (0.2-1.3) mg/dL AST 35 (14-36) U/L ALT 14 (4-34) U/L Alkaline Phosphatase 74 (38-126) U/L Lactate Dehydrogenase 760 H (313-618) U/L C-Reactive Protein 75.8 H (<10.0) mg/L Total Protein 6.9 (6.3-8.2) g/dL Albumin 3.7 (3.5-5.0) g/dL Urine Color Urine Appearance (Clear) Urine pH (5.0-8.0) Ur Specific [place] (1.001-1.035) Urine Protein (Negative) Urine Glucose (UA) (Negative) Urine Ketones (Negative) Urine Blood (Negative) Urine Nitrite (Negative) Urine Bilirubin (Negative) Urine Urobilinogen (<2.0) mg/dL Ur Leukocyte Esterase (Negative) 06/03/20 06/04/20 Range/Units 21:45 00:17 WBC (3.8-10.6) k/uL RBC (3.80-5.40) m/uL Hgb (11.4-16.0) gm/dL Hct (34.0-46.0) % MCV (80.0-100.0) fL MCH (25.0-35.0) pg MCHC (31.0-37.0) g/dL RDW (11.5-15.5) % Plt Count (150-450) k/uL MPV Neutrophils % % Lymphocytes % % Monocytes % % Eosinophils % % Basophils % % Neutrophils # (1.3-7.7) k/uL Lymphocytes # (1.0-4.8) k/uL Monocytes # (0-1.0) k/uL Eosinophils # (0-0.7) k/uL Basophils # (0-0.2) k/uL PT (9.0-12.0) sec INR (<1.2) APTT (22.0-30.0) sec D-Dimer (<0.60) mg/L FEU Sodium (137-145) mmol/L Potassium (3.5-5.1) mmol/L Chloride (98-107) mmol/L Carbon Dioxide (22-30) mmol/L Anion Gap mmol/L BUN (7-17) mg/dL Creatinine (0.52-1.04) mg/dL Est GFR (CKD-EPI)AfAm (>60 ml/min/1.73 sqM) Est GFR (CKD-EPI)NonAf (>60 ml/min/1.73 sqM) Glucose (74-99) mg/dL Plasma Lactic Acid [place]ung 1.0 (0.7-2.0) mmol/L Calcium (8.4-10.2) mg/dL Magnesium (1.6-2.3) mg/dL Total Bilirubin (0.2-1.3) mg/dL AST (14-36) U/L ALT (4-34) U/L Alkaline Phosphatase (38-126) U/L Lactate Dehydrogenase (313-618) U/L C-Reactive Protein (<10.0) mg/L Total Protein (6.3-8.2) g/dL Albumin (3.5-5.0) g/dL Urine Color Light Yellow Urine Appearance Clear (Clear) Urine pH 6.0 (5.0-8.0) Ur Specific [place] 1.012 (1.001-1.035) Urine Protein Negative (Negative) Urine Glucose (UA) Negative (Negative) Urine Ketones Negative (Negative) Urine Blood Negative (Negative) Urine Nitrite Negative (Negative) Urine Bilirubin Negative (Negative) Urine Urobilinogen <2.0 (<2.0) mg/dL Ur Leukocyte Esterase Negative (Negative) Disposition Is patient prescribed a controlled substance at d/c from ED?: No Time of Disposition: 00:04 Decision to Admit Reason: Admit from EC Decision Date: 06/04/20 Decision Time: 00:04 <Lawanda Ruiz - Last Filed: 06/04/20 00:14> <Darron Elias - Last Filed: 06/04/20 00:46> Clinical Impression: COVID-19, Nausea & vomiting, Dyspnea, Hypoxia Disposition: ADMITTED IP TO THIS HOSP Condition: Stable Referrals: Denny He MD [Primary Care Provider] - 1-2 days
[2020-06-03 22:19] LABS: INR 0.9 (<1.2); Prothrombin Time 9.5 sec (9.0-12.0)
[2020-06-03 22:20] LABS: Basophils % (A) 1 %; Eosinophils % (A) 1 %; HCT 39.9 % (34.0-46.0); HGB 13.5 gm/dL (11.4-16.0); Lymphocytes # (A) 1.3 k/uL (1.0-4.8); Lymphocytes % (A) 19 %; MCH 31.2 pg (25.0-35.0); MCHC 33.8 g/dL (31.0-37.0); MCV 92.1 fL (80.0-100.0); Mean Platelet Volume 7.4; Monocytes # (A) 0.3 k/uL (0-1.0); Monocytes % (A) 5 %; Neutrophils # (A) 4.9 k/uL (1.3-7.7); Neutrophils % (A) 73 %; Partial Thromboplastin Time 24.6 sec (22.0-30.0); Platelet Count 258 k/uL (150-450); RBC 4.34 m/uL (3.80-5.40); RDW 12.3 % (11.5-15.5); WBC 6.6 k/uL (3.8-10.6)
[2020-06-03 22:37] LABS: D-Dimer 1.5 mg/L FEU (<0.60)
--- NOTE | 2020-06-03 23:02 | XR ---
EXAMINATION TYPE: XR chest 1V portable DATE OF EXAM: 06/03/2020 COMPARISON: 05/30/2020 HISTORY: Pneumonia. Chest pain TECHNIQUE: FINDINGS: There is no heart failure nor confluent pneumonic infiltrate there is slight increased lung markings at the lung bases. There is no pleural effusion. There are no hilar masses. There are chest leads. IMPRESSION: Mild increased lung markings at the lung bases compared to recent exam. No pulmonary cons olidation or heart failure.
[2020-06-03 23:14] LABS: Albumin 3.7 g/dL (3.5-5.0); C Reactive Protein 75.8 mg/L (<10.0); Calcium 8.7 mg/dL (8.4-10.2); Magnesium 1.9 mg/dL (1.6-2.3); Potassium 3.9 mmol/L (3.5-5.1); Total Bilirubin 0.5 mg/dL (0.2-1.3); Total Protein 6.9 g/dL (6.3-8.2)
[2020-06-03] MEDS ORDERED: SODIUM CHLORIDE 0.9% 500 ML 500 ML IV ONE (23:46)
[2020-06-03] MEDS: SODIUM CHLORIDE 0.9% 1,000 ML IV SCH (23:57)
--- NOTE | 2020-06-03 23:57 | CT ---
EXAMINATION TYPE: CT chest angio for PE DATE OF EXAM: 06/03/2020 COMPARISON: None HISTORY: R/O PE, SOB CT DLP: 259.60 mGycm Automated exposure control for dose reduction was used. CONTRAST: Performed with IV Contrast, patient injected with 60 mL of Isovue 370. There are 3-D post processed images. There is some patchy peripheral pulmonary interstitial and airspace infiltrates in the lungs. There i s also some atelectasis at the posterior lung bases. Heart is slightly enlarged. There is no pericard ial effusion. There is no mediastinal adenopathy. There are no hilar masses. There is normal contrast opacification of the pulmonary arteries. There are no filling defects. Ascending aorta measures 3.3 cm. There is n o aneurysm or dissection. There is no evidence of focal bone destruction. Thoracic spine is intact. There is spurring of the en dplates. Sternum is intact. Upper abdominal soft tissues are intact. There is 1.5 cm rounded hypodens ity anterior right lobe of the liver that is probably a cyst. IMPRESSION: No evidence of pulmonary embolism. Patchy peripheral bilateral pulmonary interstitial and airspace infiltrates. Mild basilar atelectasis . Mild cardiomegaly.
[2020-06-04] MEDS ORDERED: NALOXONE 0.4 MG/ML 1 ML VIAL IV PRN (00:02)
[2020-06-04 00:27] LABS: Appearance,Urine Clear (Clear); Bilirubin,Urine Negative (Negative); Blood,Urine Negative (Negative); Color,Urine Light Yellow; Glucose,Urine (UA) Negative (Negative); Ketones,Urine Negative (Negative); Leukocyte Esterase,Urine Negative (Negative); Nitrite,Urine Negative (Negative); Protein,Urine Negative (Negative); Specific Gravity,Urine 1.012 (1.001-1.035); Urobilinogen,Urine <2.0 mg/dL (<2.0)
[2020-06-04] MEDS ORDERED: AZITHROMYCIN 500 MG in SODIUM CHLORIDE 0.9% 250 ML IVPB STA (00:42)
[2020-06-04] MEDS ORDERED: HYOSCYAMINE SULFATE 0.125 MG TAB PO PRN (13:45)
--- NOTE | 2020-06-04 15:24 | P.HPIM ---
History of Present Illness H&P Date: 06/04/20 Chief Complaint: Shortness of breath This is an 79-year-old pleasant lady who currently resides at home. She has underlying history of hepatitis and, in hypertension, osteoporosis, IBS, basal cell cancer, admitted through the emergency room secondary to hypoxemia can. She has had shortness of breath for the past 2 days, she was sick for less than a week, and presented to emergency room May 30, secondary to anorexia, 3 days along with nausea and vomiting. She was discharged from the emergency room on May 30, no evidence of hypoxemia that time. With prescriptions for Zofran. She now returns to the emergency room June 03 secondary to shortness of breath, she was pulse oxygenating at 92% on room air resting, however this was not checked at ambulation she does have shortness of breath with ambulation, and lightheadedness, patient denies any syncope, no edema, patient denies any syncope. Schneider test painful breathing, and coughing spells. In the emergency room, sodium was 131 potassium 3.9 BUN elevated 24 creatinine elevated 1.08 13 399 elevated LDH elevated at 760 CRP elevated at 75 no d-dimer obtained, pro-Cameron normal on 0.06 lactic acid at 1.0 CTA of the chest, negative for PE, patchy peripheral bilateral pulmonary interstitial and airspace infiltrates, mild atelectasis and mild cardiomegaly probable 1.75 cm liver cys constant consult with infectious disease Review of Systems Constitutional: Reports anorexia, Reports chills, Reports fever, Reports lethargy, Reports malaise Ears, nose, mouth and throat: Reports as per HPI, Denies ant. neck pain, Denies bleeding gums, Denies dental pain, Denies dysphagia, Denies epistaxis, Denies headache, Denies hoarseness, Denies mouth pain, Denies nasal congestion, Denies nasal discharge, Denies neck fullness/pressure, Denies neck lump, Denies nose pain, Denies odynophagia, Denies post-nasal drip, Denies sinus pain, Denies sin us pressure, Denies swelling in mouth, Denies swelling in throat, Denies sore throat, Denies vertigo, Denies voice changes Cardiovascular: Reports as per HPI, Denies chest pain, Denies claudication, Denies decreased exercise tolerance, Denies dyspnea on exertion, Denies edema, Denies high blood pressure, Denies irregular heart beat, Denies leg edema, Denies lightheadedness, Denies orthopnea, Denies palpitations, Denies paroxysmal nocturnal dyspnea, Denies phlebitis, Denies rapid heart beat, Denies shortness of breath, Denies syncope Respiratory: Reports congestion, Reports cough, Reports dyspnea, Reports pain on inspiration Gastrointestinal: Reports as per HPI Genitourinary: Reports as per HPI, Denies abnormal vaginal bleeding, Denies decreased libido, Denies difficulty conceiving, Denies difficulty voiding, Denies dysmenorrhea, Denies dyspareunia, Denies dysuria, Denies flank pain, Ever es genital sores, Denies hematuria, Denies hot flashes, Denies incomplete emptying, Denies kidney stones, Denies menorrhagia, Denies mixed incontinence, Denies nocturia, Denies pelvic pain, Denies post void dribbling, Denies , Denies prolapse symptoms, Denies stress incontinence, Denies urge incontinence, Denies urgency, Denies urinary frequency, Denies vaginal discharge, Denies vaginal dryness, Denies vaginal itching, Denies vaginal odor Menstruation: Reports as per HPI Musculoskeletal: Reports as per HPI, Denies arm numbness/tingling, Denies atrophy, Denies fractures, Denies frequent falls, Denies gait dysfunction, Denies hot joints, Denies leg numbness/tingling, Denies limitation of motion, Denies loss of height, Denies low back pain, Denies morning stiffness, Denies muscle cramps, Denies muscle weakness, Denies myalgias, Denies neck pain, Denies neck stiffness, Denies prior amputations, Denies redness of joints, Denies shoot ing arm pain, Denies shooting leg pain Integumentary: Reports as per HPI, Denies acne, Denies boils, Denies brittle nails, Denies change in hair/nails, Denies color changes, Denies darkening of skin, Denies depigmentation, Denies dryness, Denies foot/leg ulcers, Denies growths, Denies hirsutism, Denies lesions, Denies onychomycosis, Denies pruritus, Denies rash, Denies sores, Denies striae, Denies unusual bruising, Denies wounds Neurological: Reports as per HPI, Reports headaches, Denies aphasia, Denies ataxia, Denies balance difficulties, Denies burning pain, Denies change in mentation, Denies change in smell/taste, Denies change in speech, Denies confusion, Denies convulsions, Denies double vision, Denies gait dysfunction, Denies head injury, Denies hearing difficulties, Denies lack of coordination, Denies loss of vision, Denies memory loss, Denies migraines, Denies motor disturbance, Denies numbness, Denies paralysis, Denies paresthesias, Denies seizures, Denies sensory deficit, Denies spasticity, Denies syncope, Denies tic, Denies tingling, Denies transient paralysis, Denies tremors, Denies vertigo, Denies weakness, Denies visual changes Psychiatric: Reports as per HPI, Denies anhedonia, Denies anxiety, Denies anxiety attacks, Denies change in appetite, Denies change in libido, Denies change in sleep habits, Denies confusion, Denies depression, Denies difficulty concentrating, Denies disorientation, Denies hallucinations, Denies hopelessness, Denies hypersomnia, Denies insomnia, Denies irritability, Denies memory loss, Denies mood swings, Denies paranoia, Denies sadness/tearfulness, Denies sleep disturbances, Denies suicidal ideation Endocrine: Reports as per HPI, Denies cold intolerance, Denies deepening of the voice, Denies excessive sweating, Denies excessive thirst, Denies fatigue, Denies flushing, Denies heat intolerance, Denies high blood sugars, Denies incr ease in ring/shoe/hat size, Denies low blood sugars, Denies nocturia, Denies palpitations, Denies polydipsia, Denies polyphagia, Denies polyuria, Denies proptosis, Denies recent glucocorticoid use, Denies thyroid mass, Denies weight change Hematologic/Lymphatic: Reports as per HPI, Denies easy bleeding, Denies easy bruising, Denies lymphadenopathy, Denies lymphedema, Denies thrombophilia Allergic/Immunologic: Reports as per HPI, Denies allergic rhinitis, Denies anaphylaxis, Denies angioedema, Denies gluten intolerance, Denies persistent infections, Denies seasonal allergies, Denies urticaria, Denies wheezing Past Medical History Past Medical History: Cancer, Hypertension, Thyroid Disorder Additional Past Medical History / Comment(s): IBS, COVID 19+ 05/29/2020 basal cell carcinoma with surgical removal History of Any Multi-Drug Resistant Organisms: None Reported Past Surgical History: Adenoidectomy, Appendectomy, Bladder Surgery, Breast Surgery, Section, Cholecystectomy, Hysterectomy, Tonsillectomy Additional Past Surgical History / Comment(s): BLADDER SUSPENSION. MASTOID SX AGE 14. BILAT LUMPECTOMY-BENIGN. COLONOSCOPY,. BILAT CATARACT SX. BASAL CELL CANCER REMOVED FROM FACE Past Anesthesia/Blood Transfusion Reactions: Postoperative Nausea & Vomiting ( PONV) Past Psychological History: No Psychological Hx Reported Smoking Status: Never smoker Past Alcohol Use History: None Reported Past Drug Use History: None Reported - Past Family History Mother History Unknown: Yes Family Medical History: Cancer Additional Family Medical History / Comment(s): STOMACH CANCER Sister(s) Family Medical History: Cancer Brother(s) Family Medical History: Cancer Medications and Allergies Home Medications Medication Instructions Recorded Confirmed Type Aspirin 325 mg PO DAILY 08/29/17 06/03/20 History Cholecalciferol [Vitamin D3] 1,000 unit PO DAILY 08/29/17 06/03/20 History Cyanocobalamin (Vitamin B-12) 1,000 mcg PO DAILY 08/29/17 06/03/20 History [Vitamin B-12] Estrogens, Conjugated [Premarin] 0.625 mg PO DAILY 08/29/17 06/03/20 History Hyoscyamine Sulfate [Levsin] 0.125 mg PO TID PRN 08/29/17 06/03/20 History Levothyroxine Sodium [Synthroid] 50 mcg PO DAILY 08/29/17 06/03/20 History C[place]ato's Wort 300 mg PO DAILY 08/29/17 06/03/20 History amLODIPine BESYLATE [Norvasc] 5 mg PO DAILY 08/29/17 06/03/20 History Dicyclomine [Bentyl] 20 mg PO DAILY 06/03/20 06/03/20 History Ondansetron [Zofran] 4 mg PO Q6H PRN 06/03/20 06/03/20 History Oxybutynin Chloride [Ditropan] 5 mg PO DAILY 06/03/20 06/03/20 History Allergies Allergy/AdvReac Type Severity Reaction Status Date / Time Penicillins Allergy Rash/Hives Verified 06/03/20 21:49 Sulfa (Sulfonamide Allergy Rash/Hives Verified 06/03/20 21:49 Antibiotics) Physical Exam Vitals: Vital Signs Temp Pulse Pulse Resp BP BP Pulse Ox 06/04/20 12:07 98.8 F 53 L 16 165/77 98 06/04/20 04:05 98.0 F 60 16 135/75 99 06/04/20 01:50 98.2 F 67 17 121/67 98 06/04/20 01:18 64 18 144/84 99 06/03/20 22:47 64 18 145/74 99 06/03/20 22:07 66 97 06/03/20 21:15 99.2 F 72 18 142/69 93 L Intake and Output 06/03/20 06/04/20 06/04/20 22:59 06:59 14:59 Other: # Voids 1 Weight 54.885 kg 54.885 kg - Constitutional General appearance: cooperative, no acute distress - EENT Eyes: anicteric sclerae, dentition normal, normal appearance ENT: NA/AT, normal oropharynx - Neck Neck: normal ROM - Respiratory Respiratory: left: rhonchi, bilateral: diminished, prolonged inspiration, negative: CTA, dullness - Cardiovascular Rhythm: regular Heart sounds: normal: S1, S2 Abnormal Heart Sounds: no systolic murmur, no diastolic murmur, no rub, no S3 Gallop, no S4 Gallop, no click, no other - Gastrointestinal General gastrointestinal: hyperactive bowel sounds, normal bowel sounds - Integumentary Integumentary: decreased turgor, normal - Neurologic Neurologic: CNII-XII intact - Musculoskeletal Musculoskeletal: generalized weakness, strength equal bilaterally Results CBC & Chem 7: 06/03/20 21:45 06/03/20 21:31 Labs: Abnormal Lab Results - Last 24 Hours (Table) 06/03/20 06/03/20 Range/Units 21:31 21:45 D-Dimer 1.50 H (<0.60) mg/L FEU Sodium 131 L (137-145) mmol/L Chloride 95 L (98-107) mmol/L BUN 24 H (7-17) mg/dL Creatinine 1.08 H (0.52-1.04) mg/dL Glucose 102 H (74-99) mg/dL Ferritin 399.0 H (10.0-291.0) ng/mL Lactate Dehydrogenase 760 H (313-618) U/L C-Reactive Protein 75.8 H (<10.0) mg/L Laboratory Results WBC 6.6 k/uL (3.8-10.6) 06/03/20 21:45 RBC 4.34 m/uL (3.80-5.40) 06/03/20 21:45 Hgb 13.5 gm/dL (11.4-16.0) 06/03/20 21:45 Hct 39.9 % (34.0-46.0) 06/03/20 21:45 MCV 92.1 fL (80.0-100.0) 06/03/20 21:45 MCH 31.2 pg (25.0-35.0) 06/03/20 21:45 MCHC 33.8 g/dL (31.0-37.0) 06/03/20 21:45 RDW 12.3 % (11.5-15.5) 06/03/20 21:45 Plt Count 258 k/uL (150-450) 06/03/20 21:45 MPV 7.4 06/03/20 21:45 Neutrophils % 73 % 06/03/20 21:45 Lymphocytes % 19 % 06/03/20 21:45 Monocytes % 5 % 06/03/20 21:45 Eosinophils % 1 % 06/03/20 21:45 Basophils % 1 % 06/03/20 21:45 Neutrophils # 4.9 k/uL (1.3-7.7) 06/03/20 21:45 Lymphocytes # 1.3 k/uL (1.0-4.8) 06/03/20 21:45 Monocytes # 0.3 k/uL (0-1.0) 06/03/20 21:45 Eosinophils # 0.0 k/uL (0-0.7) 06/03/20 21:45 Basophils # 0.0 k/uL (0-0.2) 06/03/20 21:45 PT 9.5 sec (9.0-12.0) 06/03/20 21:45 INR 0.9 (<1.2) 06/03/20 21:45 APTT 24.6 sec (22.0-30.0) 06/03/20 21:45 D-Dimer 1.50 mg/L FEU (<0.60) H 06/03/20 21:45 Sodium 131 mmol/L (137-145) L 06/03/20 21:31 Potassium 3.9 mmol/L (3.5-5.1) 06/03/20 21:31 Chloride 95 mmol/L (98-107) L 06/03/20 21:31 Carbon Dioxide 29 mmol/L (22-30) 06/03/20 21:31 Anion Gap 7 mmol/L 06/03/20 21:31 BUN 24 mg/dL (7-17) H 06/03/20 21:31 Creatinine 1.08 mg/dL (0.52-1.04) H 06/03/20 21:31 Est GFR (CKD-EPI)AfAm 56 (>60 ml/min/1.73 sqM) 06/03/20 21:31 Est GFR (CKD-EPI)NonAf 48 (>60 ml/min/1.73 sqM) 06/03/20 21:31 Glucose 102 mg/dL (74-99) H 06/03/20 21:31 Plasma Lactic Acid Yung 1.0 mmol/L (0.7-2.0) 06/03/20:45 Calcium 8.7 mg/dL (8.4-10.2) 06/03/20 21:31 Magnesium 1.9 mg/dL (1.6-2.3) 06/03/20 21:31 Ferritin 399.0 ng/mL (10.0-291.0) H 06/03/20 21:31 Total Bilirubin 0.5 mg/dL (0.2-1.3) 06/03/20 21:31 AST 35 U/L (14-36) 06/03/20 21:31 ALT 14 U/L (4-34) 06/03/20 21:31 Alkaline Phosphatase 74 U/L (38-126) 06/03/20 21:31 Lactate Dehydrogenase 760 U/L (313-618) H 06/03/20 21:31 C-Reactive Protein 75.8 mg/L (<10.0) H 06/03/20 21:31 Total Protein 6.9 g/dL (6.3-8.2) 06/03/20 21:31 Albumin 3.7 g/dL (3.5-5.0) 06/03/20 21:31 Procalcitonin 0.06 ng/mL (0.02-0.09) 06/03/20 21:45 Urine Color Light Yellow 06/04/20 00:17 Urine Appearance Clear (Clear) 06/04/20 00:17 Urine pH 6.0 (5.0-8.0) 06/04/20 00:17 Ur Specific [place] 1.012 (1.001-1.035) 06/04/20 00:17 Urine Protein Negative (Negative) 06/04/20 00:17 Urine Glucose (UA) Negative (Negative) 06/04/20 00:17 Urine Ketones Negative (Negative) 06/04/20 00:17 Urine Blood Negative (Negative) 06/04/20 00:17 Urine Nitrite Negative (Negative) 06/04/20 00:17 Urine Bilirubin Negative (Negative) 06/04/20 00:17 Urine Urobilinogen <2.0 mg/dL (<2.0) 06/04/20 00:17 Ur Leukocyte Esterase Negative (Negative) 06/04/20 00:17 Thrombosis Risk Factor Assmnt - Choose All That Apply Any of the Below Risk Factors Present?: Yes Each Risk Factor Represents 3 Points: Age 75 years or older Thrombosis Risk Factor Assessment Total Risk Factor Score: 3 Thrombosis Risk Factor Assessment Level: Moderate Risk Assessment and Plan Plan: 1. covid infection, diagnosed at [facility], however this was outside of our facility, approximately May 28, symptoms are now 7 days old presenting with nausea vomiting hypoxemia shortness of breath, and bilateral pneumonic infiltrate, discussed with Dr. Butt she does qualify for him does appear this time, negative for pulmonary emboli based on CT, check for d-dimer follow, currently Lovenox for prophylaxis, M.D. have remdesevir oked by ID, day 1 of 5 dexamethasone IV 6 mg every 12 hours, zinc, vitamin C, incentive spirometry early ambulation as tolerated 2. Hypoxemia, secondary to bilateral pneumonia, O2 supplementation current at 4 L, Zithromax 3. Hypothyroidism on levothyroxine no change, check TSH 4. Also arthritis 5. Nausea and vomiting related to Covid, no diarrhea currently, continue Zofran when necessary 6. GI prophylaxis Pepcid 20 twice a day DVT prophylaxis Lovenox 40 daily To
[2020-06-04] MEDS ORDERED: REMDESIVIR 200 MG in SODIUM CHLORIDE 0.9% 250 ML IVPB ONE (16:00)
[2020-06-04] MEDS: ASCORBIC ACID 500 MG TAB PO SCH (16:29)
[2020-06-04] MEDS: SODIUM CHLORIDE 0.9% 1,000 ML IV SCH (16:30)
[2020-06-04] MEDS: ENOXAPARIN 40 MG/0.4 ML SYRINGE SQ SCH (16:57)
[2020-06-04] MEDS: DEXAMETHASONE SOD PHOSPHATE 10 MG/ML 1 ML VIAL IV SCH (16:58)
[2020-06-04] MEDS: FAMOTIDINE 20 MG/2 ML VIAL IV SCH (16:58)
[2020-06-04] MEDS: amLODIPine 5 MG TAB PO SCH (16:58)
[2020-06-04] MEDS: ZINC SULFATE 220 MG CAP PO SCH (17:00)
--- NOTE | 2020-06-04 23:19 | CONS ---
CONSULTATION DATE OF SERVICE: 06/04/2020 REASON FOR CONSULTATION: COVID-19 pneumonia HISTORY OF PRESENT ILLNESS: The patient is an 79-year-old female who started getting sick about a week ago on Saturday. This patient's symptoms have been mostly nausea and vomiting. The patient mentioned she went to the [facility], was diagnosed with Covid 19 last Saturday. The patient subsequently started having more symptoms of shortness of breath that has progressively got worse. She presented to the ER yesterday. The patient had some shortness of breath and unable to take a deep breath. The patient also noted to have a cough which is mild to moderate intensity, mostly dry in nature. No further vomiting. Denies abdominal pain or diarrhea. With these symptoms, the patient presented to hospital. On arrival to the ER, the patient did have a low-grade fever of 99.2. She was mildly hypoxic with O2 saturation 93% on room air. The patient did have a chest x- ray, mild increased lung markings at the lung bases compared to the recent exam. She did have a CT angiogram of the chest that was negative for PE. Did show evidence of bilateral multifocal infiltrate suspicious for COVID-19 pneumonia. The patient did have elevated D. dimer of 1.50. Creatinine was mildly elevated. Did have an elevated CRP. Procalcitonin was normal. Urine was negative. The patient has been admitted to the hospital. Infectious Disease was consulted for further management. REVIEW OF SYSTEMS: Positive points have been mentioned in HPI. Rest of systems are negative. PAST MEDICAL HISTORY: Hypertension, hypothyroidism, IBS, history of breast cancer. PAST SURGICAL HISTORY: Adenoidectomy, appendectomy, bladder surgery, cholecystectomy, hysterectomy, tonsillectomy and breast surgery. SOCIAL HISTORY: Denies any history of smoking, drinking or drug use. FAMILY HISTORY: Mother history of stomach cancer. ALLERGIES: To PENICILLIN AND SULFA. MEDICATIONS: The patient is currently on Norvasc, vitamin C, aspirin, vitamin D3, received a dose of Dexamethasone yesterday, Synthroid, Narcan, IV fluids and zinc sulfate. PHYSICAL EXAMINATION: Blood pressure 140/84 with pulse of 51. Temperature 97.6. She is 97% on 4 L nasal cannula. General description is an elderly female lying in bed in no distress. No tachypnea or accessory muscles of respiration use. HEENT: Examination shows no pallor or scleral icterus. Oral mucosal membranes dry. Neck: Trachea central. No thyromegaly. Lungs unlabored breathing, decreased breath sounds in the base, with no wheeze. Heart S1, S2. Regular rate and rhythm. ABDOMEN: Soft. No tenderness. No guarding. No rigidity. Extremities: No edema of the feet. Skin examination: No rash or mass palpable. Neurologic: The patient is awake, alert, oriented times three. Mood and affect normal. LABS: Hemoglobin 13.4. White count 6.6. D. dimer 1.50. Ferritin was elevated. CRP is elevated. Liver enzymes are normal. Urine is negative. Procalcitonin normal. DIAGNOSTIC IMPRESSION AND PLAN: Patient with acute COVID-19 pneumonia. This patient did have evidence of multifocal infiltrate on a CT angiogram of the chest with evidence of hypoxemia. Sats of 93% on room air. Symptoms also 11 to 7 days, patient does qualify for Remdesivir therapy. PLAN: 1. The patient started on Remdesivir times one followed by daily. 2. Dexamethasone 6 mg IV along with Lovenox, zinc sulfate and vitamin C. 3. Droplet isolation and respiratory support. 4. We will follow up on clinical condition and culture to further adjust medication if needed. Thank you for this consultation. Will follow this patient along with you. MMODL / IJN: [id number] /
[2020-06-05] MEDS: SODIUM CHLORIDE 0.9% 1,000 ML IV SCH ×2 (00:53→15:14)
[2020-06-05] MEDS: LEVOTHYROXINE 50 MCG TAB PO SCH (06:26)
[2020-06-05 07:46] LABS: Basophils % (A) 0 %; Eosinophils % (A) 0 %; HCT 32.6 % (34.0-46.0); HGB 11.5 gm/dL (11.4-16.0); Lymphocytes # (A) 0.8 k/uL (1.0-4.8); Lymphocytes % (A) 10 %; MCH 32.8 pg (25.0-35.0); MCHC 35.4 g/dL (31.0-37.0); MCV 92.5 fL (80.0-100.0); Mean Platelet Volume 7.1; Monocytes # (A) 0.4 k/uL (0-1.0); Monocytes % (A) 5 %; Neutrophils # (A) 6.5 k/uL (1.3-7.7); Neutrophils % (A) 84 %; Platelet Count 259 k/uL (150-450); RBC 3.52 m/uL (3.80-5.40); RDW 12.1 % (11.5-15.5); WBC 7.7 k/uL (3.8-10.6)
[2020-06-05] MEDS: ASCORBIC ACID 500 MG TAB PO SCH ×2 (09:00→20:49)
[2020-06-05] MEDS: amLODIPine 5 MG TAB PO SCH (09:50)
[2020-06-05] MEDS: CYANOCOBALAMIN 500 MCG TAB PO SCH (09:50)
[2020-06-05] MEDS: ENOXAPARIN 40 MG/0.4 ML SYRINGE SQ SCH (09:51)
[2020-06-05] MEDS: FAMOTIDINE 20 MG/2 ML VIAL IV SCH (09:51)
[2020-06-05] MEDS: CHOLECALCIFEROL 1,000 UNIT TAB PO SCH (09:51)
[2020-06-05] MEDS: OXYBUTYNIN CHLORIDE 5 MG TAB PO SCH (09:51)
[2020-06-05] MEDS: DEXAMETHASONE SOD PHOSPHATE 10 MG/ML 1 ML VIAL IV SCH (09:51)
[2020-06-05] MEDS: ASPIRIN 325 MG TAB PO SCH (09:51)
[2020-06-05] MEDS: ZINC SULFATE 220 MG CAP PO SCH (09:51)
[2020-06-05 12:19] LABS: African American GFR (CKD) 80.1 (60.0-200.0); Albumin 3.2 g/dL (3.80-4.90); Albumin/Globulin Ratio 1.6 (1.60-3.17); Anion Gap 5.4 mmol/L (4.00-12.00); BUN/Creat Ratio 23.75 Ratio (12.00-20.00); Calcium 8.3 mg/dL (8.7-10.3); Carbon Dioxide 27.6 mmol/L (21.6-31.8); Non-African American GFR(CKD) 69.1 (60.0-200.0); Potassium 4.2 mmol/L (3.5-5.5); Total Bilirubin 0.3 mg/dL (0.3-1.2); Total Protein 5.2 g/dL (6.2-8.2)
--- NOTE | 2020-06-05 14:51 | P.PN ---
Subjective Progress Note Date: 06/05/20 This is an 79-year-old pleasant lady who currently resides at home. She has underlying history of hepatitis and, in hypertension, osteoporosis, IBS, basal cell cancer, admitted through the emergency room secondary to hypoxemia can. She has had shortness of breath for the past 2 days, she was sick for less than a week, and presented to emergency room May 30, secondary to anorexia, 3 days along with nausea and vomiting. She was discharged from the emergency room on May 30, no evidence of hypoxemia that time. With prescriptions for Zofran. She now returns to the emergency room June 03 secondary to shortness of breath, she was pulse oxygenating at 92% on room air resting, however this was not checked at ambulation she does have shortness of breath with ambulation, and lightheadedness, patient denies any syncope, no edema, patient denies any syncope. Schneider test painful breathing, and coughing spells. In the emergency room, sodium was 131 potassium 3.9 BUN elevated 24 creatinine elevated 1.08 13 399 elevated LDH elevated at 760 CRP elevated at 75 no d-dimer obtained, pro-Cameron normal on 0.06 lactic acid at 1.0 CTA of the chest, negative for PE, patchy peripheral bilateral pulmonary interstitial and airspace infiltrates, mild atelectasis and mild cardiomegaly probable 1.75 cm liver cys constant consult with infectious disease 06/05: Patient is doing much better, still with cough, less shortness of breath, receiving remdesivir d#2 pulse ox 99% on 4 L nasal cannula, blood pressure 150- 169, systolic temperature 98.8 heart rate 46-50, not on beta rhoda. TSH 0.3 infectious disease following not receiving actemra yet Review of Systems Constitutional: Reports anorexia, Reports chills, Reports fever, Reports lethargy, Reports malaise Ears, nose, mouth and throat: Reports as per HPI, Denies ant. neck pain, Denies bleeding gums, Denies dental pain, Denies dysphagia, Denies epistaxis, Denies headache, Denies hoarseness, Denies mouth pain, Denies nasal congestion, Denies nasal discharge, Denies neck fullness/pressure, Denies neck lump, Denies nose pain, Denies odynophagia, Denies post-nasal drip, Denies sinus pain, Denies sinus pressure, Denies swelling in mouth, Denies swelling in throat, Denies sore throat, Denies vertigo, Denies voice changes Cardiovascular: Reports as per HPI, Denies chest pain, Denies claudication, Denies decreased exercise tolerance, Denies dyspnea on exertion, Denies edema, Denies high blood pressure, Denies irregular heart beat, Denies leg edema, Denies lightheadedness, Denies orthopnea, Denies palpitations, Denies paroxysmal nocturnal dyspnea, Denies phlebitis, Denies rapid heart beat, Denies shortness of breath, Denies syncope Respiratory: Reports congestion, Reports cough, Reports dyspnea, Reports pain on inspiration Gastrointestinal: Reports as per HPI Genitourinary: Reports as per HPI, Denies abnormal vaginal bleeding, Denies decreased libido, Denies difficulty conceiving, Denies difficulty voiding, Denies dysmenorrhea, Denies dyspareunia, Denies dysuria, Denies flank pain, Denies genital sores, Denies hematuria, Denies hot flashes, Denies incomplete emptying, Denies kidney stones, Denies menorrhagia, Denies mixed incontinence, Denies nocturia, Denies pelvic pain, Denies post void dribbling, Denies , Denies prolapse symptoms, Denies stress incontinence, Denies urge incontinence, Denies urgency, Denies urinary frequency, Denies vaginal discharge, Denies vaginal dryness, Denies vaginal itching, Denies vaginal odor Menstruation: Reports as per HPI Musculoskeletal: Reports as per HPI, Denies arm numbness/tingling, Denies atrophy, Denies fractures, Denies frequent falls, Denies gait dysfunction, Denies hot joints, Denies leg numbness/tingling, Denies limitation of motion, Denies loss of height, Denies low back pain, Denies morning stiffness, Denies muscle cramps, Denies muscle weakness, Denies myalgias, Denies neck pain, Denies neck stiffness, Denies prior amputations, Denies redness of joints, Denies shooting arm pain, Denies shooting leg pain Integumentary: Reports as per HPI, Denies acne, Denies boils, Denies brittle nails, Denies change in hair/nails, Denies color changes, Denies darkening of skin, Denies depigmentation, Denies dryness, Denies foot/leg ulcers, Denies growths, Denies hirsutism, Denies lesions, Denies onychomycosis, Denies prur itus, Denies rash, Denies sores, Denies striae, Denies unusual bruising, Denies wounds Neurological: Reports as per HPI, Reports headaches, Denies aphasia, Denies ataxia, Denies balance difficulties, Denies burning pain, Denies change in mentation, Denies change in smell/taste, Denies change in speech, Denies confusion, Denies convulsions, Denies double vision, Denies gait dysfunction, Denies head injury, Denies hearing difficulties, Denies lack of coordination, Denies loss of vision, Denies memory loss, Denies migraines, Denies motor disturbance, Denies numbness, Denies paralysis, Denies paresthesias, Denies seizures, Denies sensory deficit, Denies spasticity, Denies syncope, Denies tic, Denies tingling, Denies transient paralysis, Denies tremors, Denies vertigo, Denies weakness, Denies visual changes Psychiatric: Reports as per HPI, Denies anhedonia, Denies anxiety, Denies anxiety attacks, Denies change in appetite, Denies change in libido, Denies change in sleep habits, Denies confusion, Denies depression, Denies difficulty concentrating, Denies disorientation, Denies hallucinations, Denies hopelessness, Denies hypersomnia, Denies insomnia, Denies irritability, Denies memory loss, Denies mood swings, Denies paranoia, Denies sadness/tearfulness, Denies sleep disturbances, Denies suicidal ideation Endocrine: Reports as per HPI, Denies cold intolerance, Denies deepening of the voice, Denies excessive sweating, Denies excessive thirst, Denies fatigue, Denies flushing, Denies heat intolerance, Denies high blood sugars, Denies increase in ring/shoe/hat size, Denies low blood sugars, Denies nocturia, Denies palpitations, Denies polydipsia, Denies polyphagia, Denies polyuria, Denies proptosis, Denies recent glucocorticoid use, Denies thyroid mass, Denies weight change Hematologic/Lymphatic: Reports as per HPI, Denies easy bleeding, Denies easy bruising, Denies lymphadenopathy, Denies lymphedema, Denies thrombophilia Allergic/Immunologic: Reports as per HPI, Denies allergic rhinitis, Denies anaphylaxis, Denies angioedema, Denies gluten intolerance, Denies persistent infections, Denies seasonal allergies, Denies urticaria, Denies wheezing Objective - Vital Signs Vital signs: Vital Signs Temp 97.8 F 06/05/20 11:42 Pulse 46 L 06/05/20 11:42 Resp 17 06/05/20 11:42 BP 169/66 06/05/20 11:42 Pulse Ox 99 06/05/20 11:42 Intake & Output 06/04/20 06/05/20 06/05/20 18:59 06:59 18:59 Intake Total 1260 Output Total 800 Balance -800 1260 Intake: Intake, IV Titration 900 Amount Sodium Chloride 0.9% 1, 900 000 ml @ 75 mls/hr IV . [id number] [facility] Rx#:[id number] Oral 360 Output: Urine 800 Other: # Voids 4 - Constitutional General appearance: Present: cooperative, no acute distress - EENT Eyes: Present: EOMI, PERRLA, dentition normal ENT: Present: NA/AT, normal oropharynx - Respiratory Respiratory: bilateral: diminished, rhonchi, negative: CTA, dullness - Cardiovascular Rhythm: regular - Gastrointestinal General gastrointestinal: Present: normal bowel sounds, soft - Integumentary Integumentary: Present: normal, normal turgor - Neurologic Neurologic: Present: CNII-XII intact - Musculoskeletal Musculoskeletal: Present: gait normal, strength equal bilaterally - Psychiatric Psychiatric: Present: A&O x's 3, appropriate affect - Labs CBC & Chem 7: 06/05/20 07:17 06/05/20 07:17 Labs: Abnormal Lab Results - Last 24 Hours (Table) 06/05/20 06/05/20 Range/Units 07:17 07:17 RBC 3.52 L (3.80-5.40) m/uL Hct 32.6 L (34.0-46.0) % Lymphocytes # 0.8 L (1.0-4.8) k/uL BUN/Creatinine Ratio 23.75 H (12.00-20.00) Ratio Calcium 8.3 L (8.7-10.3) mg/dL Total Protein 5.2 L (6.2-8.2) g/dL Albumin 3.20 L (3.80-4.90) g/dL TSH 0.330 L (0.350-5.500) uIU/mL Assessment and Plan Plan: 1. covid infection, diagnosed at [facility], however this was outside of our facility, approximately May 28, symptoms are now 7 days old presenting with nausea vomiting hypoxemia shortness of breath, and bilateral pneumonic infiltrate, discussed with Dr. Butt she does qualify for him does appear this time, negative for pulmonary emboli based on CT, check for d-dimer follow, currently Lovenox for prophylaxis, Taras have eamon rojas by ID, day 1 of 5 dexamethasone IV 6 mg every 12 hours, zinc, vitamin C, incentive spirometry early ambulation as tolerated, d-dimer has improved creatinine has improved 2. Hypoxemia, secondary to bilateral pneumonia, O2 supplementation current at 4 L, Zithromax 3. Hypothyroidism on levothyroxine no change, check TSH 4. Acute kidney injury, secondary dehydration, IV fluids for hydration, improv ing creatinine 5. Nausea and vomiting related to Covid, no diarrhea currently, continue Zofran when necessary 6. Bradycardia, monitor, on telemetry monitoring, check from admission, might need cardiology 6. GI prophylaxis Pepcid 20 twice a day DVT prophylaxis Lovenox 40 daily To
[2020-06-05] MEDS: REMDESIVIR 100 MG in SODIUM CHLORIDE 0.9% 250 ML IVPB SCH (16:09)
--- NOTE | 2020-06-06 02:59 | PN ---
PROGRESS NOTE DATE OF SERVICE: 06/05/2020 REASON FOR FOLLOWUP: Acute COVID-19 pneumonia. INTERVAL HISTORY: The patient is currently afebrile. The patient is feeling better today. She is breathing more comfortably. Patient coughing decreased in intensity. Denies having any chest pain. No abdominal pain or diarrhea. PHYSICAL EXAMINATION: Blood pressure 147/70 with a pulse of 50, temperature 98. She is 98% on 4 L nasal cannula. General description is an elderly female up in the bed in no distress. RESPIRATORY SYSTEM: Unlabored breathing, decreased intensity of breath sounds. No wheeze. HEART: S1, S2. Regular rate and rhythm. ABDOMEN: Soft, no tenderness. LAB: D-dimer is down to 0.51. Procalcitonin is slightly elevated. CRP is 75. DIAGNOSTIC IMPRESSION AND PLAN: Patient with acute COVID-19 infection in this patient clinically responding to the remdesivir, Decadron, Lovenox and zinc sulfate to continue and monitor clinical course closely. MMODL / IJN: [id number] /
[2020-06-06] MEDS: SODIUM CHLORIDE 0.9% 1,000 ML IV SCH ×2 (04:00→16:14)
[2020-06-06] MEDS: LEVOTHYROXINE 50 MCG TAB PO SCH (06:00)
[2020-06-06 06:45] LABS: Basophils % (A) 0 %; Eosinophils % (A) 0 %; HCT 33.4 % (34.0-46.0); HGB 11.6 gm/dL (11.4-16.0); Lymphocytes # (A) 1.1 k/uL (1.0-4.8); Lymphocytes % (A) 13 %; MCH 32.8 pg (25.0-35.0); MCHC 34.8 g/dL (31.0-37.0); MCV 94.3 fL (80.0-100.0); Mean Platelet Volume 7.4; Monocytes # (A) 0.4 k/uL (0-1.0); Monocytes % (A) 4 %; Neutrophils # (A) 7.3 k/uL (1.3-7.7); Neutrophils % (A) 82 %; Platelet Count 305 k/uL (150-450); RBC 3.54 m/uL (3.80-5.40); WBC 8.9 k/uL (3.8-10.6)
[2020-06-06] MEDS: CHOLECALCIFEROL 1,000 UNIT TAB PO SCH (08:12)
[2020-06-06] MEDS: FAMOTIDINE 20 MG TAB PO SCH (08:12)
[2020-06-06] MEDS: amLODIPine 5 MG TAB PO SCH ×2 (08:12→08:13)
[2020-06-06] MEDS: ASCORBIC ACID 500 MG TAB PO SCH ×2 (08:12→19:22)
[2020-06-06] MEDS: ASPIRIN 325 MG TAB PO SCH (08:12)
[2020-06-06] MEDS: CYANOCOBALAMIN 500 MCG TAB PO SCH ×2 (08:12→08:14)
[2020-06-06] MEDS: DEXAMETHASONE SOD PHOSPHATE 10 MG/ML 1 ML VIAL IV SCH (08:13)
[2020-06-06] MEDS: ENOXAPARIN 40 MG/0.4 ML SYRINGE SQ SCH (08:14)
[2020-06-06] MEDS: ZINC SULFATE 220 MG CAP PO SCH (08:15)
[2020-06-06] MEDS: OXYBUTYNIN CHLORIDE 5 MG TAB PO SCH (08:25)
[2020-06-06 10:53] LABS: African American GFR (CKD) 80.1 (60.0-200.0); Albumin/Globulin Ratio 1.58 (1.60-3.17); Anion Gap 6.4 mmol/L (4.00-12.00); BUN/Creat Ratio 28.75 Ratio (12.00-20.00); Calcium 8.3 mg/dL (8.7-10.3); Carbon Dioxide 27.6 mmol/L (21.6-31.8); Globulin 1.9 g/dL (1.6-3.3); Non-African American GFR(CKD) 69.1 (60.0-200.0); Potassium 4.1 mmol/L (3.5-5.5); Total Bilirubin 0.3 mg/dL (0.2-1.2); Total Protein 4.9 g/dL (6.2-8.2)
--- NOTE | 2020-06-06 13:54 | P.PN ---
Subjective This is an 79-year-old pleasant lady who currently resides at home. She has underlying history of hepatitis and, in hypertension, osteoporosis, IBS, basal cell cancer, admitted through the emergency room secondary to hypoxemia can. She has had shortness of breath for the past 2 days, she was sick for less than a week, and presented to emergency room May 30, secondary to anorexia, 3 days along with nausea and vomiting. She was discharged from the emergency room on May 30, no evidence of hypoxemia that time. With prescriptions for Zofran. She now returns to the emergency room June 03 secondary to shortness of breath, she was pulse oxygenating at 92% on room air resting, however this was not checked at ambulation she does have shortness of breath with ambulation, and lightheadedness, patient denies any syncope, no edema, patient denies any syncope. Schneider test painful breathing, and coughing spells. In the emergency room, sodium was 131 potassium 3.9 BUN elevated 24 creatinine elevated 1.08 13 399 elevated LDH elevated at 760 CRP elevated at 75 no d-dimer obtained, pro-Cameron normal on 0.06 lactic acid at 1.0 CTA of the chest, negative for PE, patchy peripheral bilateral pulmonary interstitial and airspace infiltrates, mild atelectasis and mild cardiomegaly probable 1.75 cm liver cys constant consult with infectious disease 06/05: Patient is doing much better, still with cough, less shortness of breath, receiving remdesivir d#2 pulse ox 99% on 4 L nasal cannula, blood pressure 150- 169, systolic temperature 98.8 heart rate 46-50, not on beta rhoda. TSH 0.3 infectious disease following not receiving actemra yet 06/06: Patient evaluated this morning. She is doing well, states shortness of breath is improving, continues on Remdesivir along with dexamethasone 6 mg daily. Vital signs are stable, she is afebrile 97.8, heart rate 47, respiratory rate 18 blood pressure 163/72 she's 98%. 3 L nasal cannula. Will anticipate possible discharge tomorrow Objective - Vital Signs Vital signs: Vital Signs Temp 97.8 F 06/06/20 11:00 Pulse 47 L 06/06/20 11:00 Resp 18 06/06/20 11:00 BP 163/72 06/06/20 11:00 Pulse Ox 98 06/06/20 11:00 Intake & Output 06/05/20 06/06/20 06/06/20 18:59 06:59 18:59 Intake Total 1260 Output Total 400 Balance 860 Intake: Intake, IV Titration 900 Amount Sodium Chloride 0.9% 1, 900 000 ml @ 75 mls/hr IV . [id number] [facility] Rx#:[id number] Oral 360 Output: Urine 400 - Exam - Constitutional General appearance: Present: cooperative, no acute distress - EENT Eyes: Present: EOMI, PERRLA, dentition normal ENT: Present: NA/AT, normal oropharynx - Respiratory Respiratory: bilateral: diminished, rhonchi - Cardiovascular Rhythm: regular - Gastrointestinal General gastrointestinal: Present: normal bowel sounds, soft - Integumentary Integumentary: Present: normal, normal turgor - Neurologic Neurologic: Present: CNII-XII intact - Musculoskeletal Musculoskeletal: Present: gait normal, strength equal bilaterally - Psychiatric Psychiatric: Present: A&O x's 3, appropriate affect - Labs CBC & Chem 7: 06/06/20 05:42 06/06/20 05:42 Labs: Abnormal Lab Results - Last 24 Hours (Table) 06/04/20 06/06/20 06/06/20 Range/Units 23:05 05:42 05:42 RBC 3.54 L (3.80-5.40) m/uL Hct 33.4 L (34.0-46.0) % BUN/Creatinine Ratio 28.75 H (12.00-20.00) Ratio Calcium 8.3 L (8.7-10.3) mg/dL Total Protein 4.9 L (6.2-8.2) g/dL Albumin 3.00 L (3.80-4.90) g/dL Albumin/Globulin Ratio 1.58 L (1.60-3.17) g/dL Coronavirus (PCR) Detected A (Not Detected) Assessment and Plan Plan: 1. covid infection, diagnosed at [facility] with hypoxemia and shortness of breath, and bilateral pneumonic infiltrate. Infectious disease on consult, negative for pulmonary emboli based on CT, Lovenox for prophylaxis, remdesevir, dexamethasone IV 6 mg every 12 hours, zinc, vitamin C, incentive spirometry early ambulation as tolerated 2. Hypoxemia, secondary to bilateral pneumonia, O2 supplementation current at 4 L, Zithromax 3. Hypothyroidism on levothyroxine no change, check TSH 4. Acute kidney injury, secondary dehydration, IV fluids for hydration, improving creatinine 5. Nausea and vomiting related to Covid, no diarrhea currently, continue Zofran when necessary 6. Bradycardia, monitor, on telemetry monitoring 6. GI prophylaxis Pepcid 20 twice a day DVT prophylaxis Lovenox 40 daily The above impression and plan of care have been discussed and directed by signing physician. Criselda Ramirez nurse practitioner acting as scribe for signing physician.
[2020-06-06] MEDS: REMDESIVIR 100 MG in SODIUM CHLORIDE 0.9% 250 ML IVPB SCH (14:00)
--- NOTE | 2020-06-06 23:14 | PN ---
PROGRESS NOTE DATE OF SERVICE: 06/06/2020 REASON FOR FOLLOWUP: COVID-19 pneumonia. INTERVAL HISTORY: The patient is currently afebrile. The patient is breathing comfortably. The patient denies having any chest pain. No shortness of breath. Minimal cough. No nausea, vomiting. No abdominal pain. No diarrhea. PHYSICAL EXAMINATION: Blood pressure 127/73 with a pulse of 51, temperature of 97.8. She is 97% on 2 L nasal cannula. General description is an elderly female lying in bed in no distress. Respiratory system: Unlabored breathing with decreased breath sounds in the base, with no wheeze. Heart S1, S2. Regular rate and rhythm. ABDOMEN: Soft, no tenderness. LABS: Hemoglobin 11.1, white count 8.9, BUN of 23, creatinine 0.8. IMPRESSION/PLAN: Patient with acute COVID-19 infection in this patient currently covered with Remdesivir, Lovenox, zinc and dexamethasone. We will continue to monitor closely while on Remdesivir and continue supportive care condition. MMODL / IJN: [id number] /
[2020-06-07] MEDS: LEVOTHYROXINE 50 MCG TAB PO SCH (05:07)
[2020-06-07 07:00] LABS: Anisocytosis Slight; Basophils # (A) 0.1 k/uL (0-0.2); Basophils % (A) 2 %; Eosinophils # (A) 0.1 k/uL (0-0.7); Eosinophils % (A) 1 %; HCT 35.6 % (34.0-46.0); HGB 13.2 gm/dL (11.4-16.0); Lymphocytes # (A) 1.4 k/uL (1.0-4.8); Lymphocytes % (A) 16 %; MCH 35.2 pg (25.0-35.0); MCHC 37.2 g/dL (31.0-37.0); MCV 94.7 fL (80.0-100.0); Mean Platelet Volume 7.2; Monocytes # (A) 0.4 k/uL (0-1.0); Monocytes % (A) 4 %; Neutrophils % (A) 77 %; Platelet Count 368 k/uL (150-450); RBC 3.75 m/uL (3.80-5.40); RDW 17.1 % (11.5-15.5); WBC 9.1 k/uL (3.8-10.6)
[2020-06-07 07:09] LABS: ALT 17 U/L (4-34); AST 29 U/L (14-36); African American GFR (CKD) 72 (>60 ml/min/1.73 sqM); Albumin 3.2 g/dL (3.5-5.0); Albumin/Globulin Ratio 1.1; Alkaline Phosphatase 65 U/L (38-126); Anion Gap 6 mmol/L; Blood Urea Nitrogen 27 mg/dL (7-17); Calcium 9.1 mg/dL (8.4-10.2); Carbon Dioxide 24 mmol/L (22-30); Chloride 106 mmol/L (98-107); Globulin 2.9 g/dL; Glucose 78 mg/dL (74-99); Non-African American GFR(CKD) 62 (>60 ml/min/1.73 sqM); Potassium 4.1 mmol/L (3.5-5.1); Sodium 136 mmol/L (137-145); Total Bilirubin 0.3 mg/dL (0.2-1.3); Total Protein 6.1 g/dL (6.3-8.2)
[2020-06-07] MEDS: FAMOTIDINE 20 MG TAB PO SCH (07:23)
[2020-06-07] MEDS: CHOLECALCIFEROL 1,000 UNIT TAB PO SCH (07:23)
[2020-06-07] MEDS: ASCORBIC ACID 500 MG TAB PO SCH ×2 (07:23→21:06)
[2020-06-07] MEDS: CYANOCOBALAMIN 500 MCG TAB PO SCH (07:23)
[2020-06-07] MEDS: amLODIPine 5 MG TAB PO SCH (07:24)
[2020-06-07] MEDS: ASPIRIN 325 MG TAB PO SCH (07:24)
[2020-06-07] MEDS: DEXAMETHASONE SOD PHOSPHATE 10 MG/ML 1 ML VIAL IV SCH (07:24)
[2020-06-07] MEDS: ENOXAPARIN 40 MG/0.4 ML SYRINGE SQ SCH (07:30)
[2020-06-07] MEDS: OXYBUTYNIN CHLORIDE 5 MG TAB PO SCH (07:39)
[2020-06-07] MEDS: ZINC SULFATE 220 MG CAP PO SCH (07:39)
--- NOTE | 2020-06-07 07:47 | XR ---
EXAMINATION TYPE: XR chest 1V portable DATE OF EXAM: 06/07/2020 COMPARISON: Prior chest x-ray 06/03/2020 HISTORY: Covid pneumonia TECHNIQUE: Single frontal view of the chest is obtained. FINDINGS: Minimal patchy basilar density is noted. Lung volumes are lower, right hemidiaphragm remai ns elevated. There is no evident pneumothorax or pleural effusion. Cardiac mediastinal silhouette is likely stable. IMPRESSION: Correlate for pneumonia.
[2020-06-07 08:44] LABS: Erythrocyte Sedimentation Rate 28 mm/hr (0-20)
[2020-06-07] MEDS: SODIUM CHLORIDE 0.9% 1,000 ML IV SCH (10:15)
--- NOTE | 2020-06-07 13:52 | P.PN ---
Subjective This is an 79-year-old pleasant lady who currently resides at home. She has underlying history of hepatitis and, in hypertension, osteoporosis, IBS, basal cell cancer, admitted through the emergency room secondary to hypoxemia can. She has had shortness of breath for the past 2 days, she was sick for less than a week, and presented to emergency room May 30, secondary to anorexia, 3 days along with nausea and vomiting. She was discharged from the emergency room on May 30, no evidence of hypoxemia that time. With prescriptions for Zofran. She now returns to the emergency room June 03 secondary to shortness of breath, she was pulse oxygenating at 92% on room air resting, however this was not checked at ambulation she does have shortness of breath with ambulation, and lightheadedness, patient denies any syncope, no edema, patient denies any syncope. Schneider test painful breathing, and coughing spells. In the emergency room, sodium was 131 potassium 3.9 BUN elevated 24 creatinine elevated 1.08 13 399 elevated LDH elevated at 760 CRP elevated at 75 no d-dimer obtained, pro-Cameron normal on 0.06 lactic acid at 1.0 CTA of the chest, negative for PE, patchy peripheral bilateral pulmonary interstitial and airspace infiltrates, mild atelectasis and mild cardiomegaly probable 1.75 cm liver cys constant consult with infectious disease 06/05: Patient is doing much better, still with cough, less shortness of breath, receiving remdesivir d#2 pulse ox 99% on 4 L nasal cannula, blood pressure 150- 169, systolic temperature 98.8 heart rate 46-50, not on beta rhoda. TSH 0.3 infectious disease following not receiving actemra yet 06/06: Patient evaluated this morning. She is doing well, states shortness of breath is improving, continues on Remdesivir along with dexamethasone 6 mg daily. Vital signs are stable, she is afebrile 97.8, heart rate 47, respiratory rate 18 blood pressure 163/72 she's 98%. 3 L nasal cannula. Will anticipate possible discharge tomorrow 06/07: Patient evaluated this morning, resting in bed comfortably in no acute distress. Patient continues to be covered with remdesivir, along with Lovenox, dexamethasone and supplements.Repeat chest x-ray shows minimal patchy basilar density, and low lung volumes. Vital signs are stable, she is afebrile temperature 97.9, heart rate 50, respiratory rate is 17, blood pressure 157/57, she's 98% on 4 L via nasal cannula. We'll continue to try to wean off O2, check oxygen saturation off supplemental oxygen, and possible discharge tomorrow Objective - Vital Signs Vital signs: Vital Signs Temp 97.7 F 06/07/20 11:00 Pulse 44 L 06/07/20 11:00 Resp 18 06/07/20 11:00 BP 169/78 06/07/20 11:00 Pulse Ox 97 06/07/20 11:00 Intake & Output 06/06/20 06/07/20 06/07/20 18:59 06:59 18:59 Intake Total 1100 Balance 1100 Intake: Intake, IV Titration 600 Amount Sodium Chloride 0.9% 1, 600 000 ml @ 75 mls/hr IV . [id number] [facility] Rx#:[id number] Oral 500 Other: Voiding Method Bedside Commode Bedside Commode # Voids 3 2 - Exam - Constitutional General appearance: Present: cooperative, no acute distress - EENT Eyes: Present: EOMI, PERRLA, dentition normal ENT: Present: NA/AT, normal oropharynx - Respiratory Respiratory: bilateral: diminished - Cardiovascular Rhythm: regular - Gastrointestinal General gastrointestinal: Present: normal bowel sounds, soft - Integumentary Integumentary: Present: normal, normal turgor - Neurologic Neurologic: Present: CNII-XII intact - Musculoskeletal Musculoskeletal: Present: gait normal, strength equal bilaterally - Psychiatric Psychiatric: Present: A&O x's 3, appropriate affect - Labs CBC & Chem 7: 06/07/20 06:31 06/07/20 06:31 Labs: Abnormal Lab Results - Last 24 Hours (Table) 06/07/20 06/07/20 06/07/20 Range/Units 06:31 06:31 06:31 RBC 3.75 L (3.80-5.40) m/uL MCH 35.2 H (25.0-35.0) pg MCHC 37.2 H (31.0-37.0) g/dL RDW 17.1 H (11.5-15.5) % ESR 28 H (0-20) mm/hr D-Dimer 0.90 H (<0.60) mg/L FEU Sodium 136 L (137-145) mmol/L BUN 27 H (7-17) mg/dL Total Protein 6.1 L (6.3-8.2) g/dL Albumin 3.2 L (3.5-5.0) g/dL Assessment and Plan Plan: 1. covid infection, diagnosed at [facility] with hypoxemia and shortness of breath, and bilateral pneumonic infiltrate. Infectious disease on consult, negative for pulmonary emboli based on CT, Lovenox for prophylaxis, remdesevir, dexamethasone IV 6 mg every 12 hours, zinc, vitamin C, incentive spirometry early ambulation as tolerated 2. Hypoxemia, secondary to bilateral pneumonia, O2 supplementation current at 4 L, Zithromax 3. Hypothyroidism on levothyroxine no change, check TSH 4. Acute kidney injury, secondary dehydration, IV fluids for hydration, improving creatinine 5. Nausea and vomiting related to Covid, no diarrhea currently, continue Zofran when necessary 6. Bradycardia, monitor, on telemetry monitoring 6. GI prophylaxis Pepcid 20 twice a day DVT prophylaxis Lovenox 40 daily The above impression and plan of care have been discussed and directed by signing physician. Criselda Ramirez nurse practitioner acting as scribe for signing physician.
[2020-06-07] MEDS: REMDESIVIR 100 MG in SODIUM CHLORIDE 0.9% 250 ML IVPB SCH (14:16)
[2020-06-07 19:29] LABS: LDH 326 U/L (120-246)
[2020-06-07 19:51] LABS: Ferritin 601.6 ng/mL (10.0-291.0)
--- NOTE | 2020-06-07 23:17 | PN ---
PROGRESS NOTE DATE OF SERVICE: 06/07/2020 REASON FOR FOLLOW UP: Covid-19 pneumonia. INTERVAL HISTORY: Patient is currently afebrile. Patient is breathing comfortably. Denies any chest pain. Occasional cough. No abdominal pain. No diarrhea. PHYSICAL EXAMINATION: Blood pressure 144/70 with a pulse of 51, temperature 97.9. She is 97% on 2 L nasal cannula. General description is an elderly female up in the bed in no distress. Respiratory system: Unlabored breathing with decreased intensity in breath sounds. No wheeze. Heart S1, S2. Regular rate and rhythm. ABDOMEN: Soft, no tenderness. LABS: Hemoglobin 17.1, white count 9.9, BUN of 27, creatinine 0.88. DIAGNOSTIC IMPRESSION/PLAN: Patient with acute COVID-19 infection. This patient currently clinically responding to the Remdesivir therapy in addition to the Dexamethasone, Lanoxin and zinc to continue and monitor clinical course closely. Continue supportive care. MMODL / IJN: [id number] /
[2020-06-08] MEDS: SODIUM CHLORIDE 0.9% 1,000 ML IV SCH ×2 (00:57→11:36)
[2020-06-08] MEDS: LEVOTHYROXINE 50 MCG TAB PO SCH (05:34)
[2020-06-08 05:46] VITALS: BP 173/80; TEMP 97.6
[2020-06-08] MEDS: DEXAMETHASONE SOD PHOSPHATE 10 MG/ML 1 ML VIAL IV SCH (09:16)
[2020-06-08] MEDS: ASCORBIC ACID 500 MG TAB PO SCH (09:16)
[2020-06-08] MEDS: ASPIRIN 325 MG TAB PO SCH (09:16)
[2020-06-08] MEDS: ENOXAPARIN 40 MG/0.4 ML SYRINGE SQ SCH (09:16)
[2020-06-08] MEDS: ZINC SULFATE 220 MG CAP PO SCH (09:16)
[2020-06-08] MEDS: FAMOTIDINE 20 MG TAB PO SCH (09:17)
[2020-06-08] MEDS: OXYBUTYNIN CHLORIDE 5 MG TAB PO SCH (09:17)
[2020-06-08] MEDS: CHOLECALCIFEROL 1,000 UNIT TAB PO SCH (09:17)
--- NOTE | 2020-06-08 10:42 | P.DS ---
Providers Date of admission: 06/04/20 00:53 Expected date of discharge: 06/08/20 Attending physician: Zulma Nelson Consults: 06/04/20 00:41 Consult Physician Routine Consulting Provider: Sasha Butt Consult Reason/Comments: per junaid Do you want consulting provider notified?: Yes, Notify in am Primary care physician: [facility] Course: This is an 79-year-old pleasant lady who currently resides at home. She has underlying history of hepatitis and, in hypertension, osteoporosis, IBS, basal cell cancer, admitted through the emergency room secondary to hypoxemia can. She has had shortness of breath for the past 2 days, she was sick for less than a week, and presented to emergency room May 30, secondary to anorexia, 3 days along with nausea and vomiting. She was discharged from the emergency room on May 30, no evidence of hypoxemia that time. With prescriptions for Zofran. She now returns to the emergency room June 03 secondary to shor tness of breath, she was pulse oxygenating at 92% on room air resting, however this was not checked at ambulation she does have shortness of breath with ambulation, and lightheadedness, patient denies any syncope, no edema, patient denies any syncope. Schneider test painful breathing, and coughing spells. In the emergency room, sodium was 131 potassium 3.9 BUN elevated 24 creatinine elevated 1.08 13 399 elevated LDH elevated at 760 CRP elevated at 75 no d-dimer obtained, pro-Cameron normal on 0.06 lactic acid at 1.0 CTA of the chest, negative for PE, patchy peripheral bilateral pulmonary interstitial and airspace infiltrates, mild atelectasis and mild cardiomegaly probable 1.75 cm liver cys constant consult with infectious disease 06/05: Patient is doing much better, still with cough, less shortness of breath, receiving remdesivir d#2 pulse ox 99% on 4 L nasal cannula, blood pressure 150- 169, systolic temperature 98.8 heart rate 46-50, not on beta rhoda. TSH 0.3 infectious disease following not receiving actemra yet 06/06: Patient evaluated this morning. She is doing well, states shortness of breath is improving, continues on Remdesivir along with dexamethasone 6 mg daily. Vital signs are stable, she is afebrile 97.8, heart rate 47, respiratory rate 18 blood pressure 163/72 she's 98%. 3 L nasal cannula. Will anticipate possible discharge tomorrow 06/07: Patient evaluated this morning, resting in bed comfortably in no acute distress. Patient continues to be covered with remdesivir, along with Lovenox, dexamethasone and supplements.Repeat chest x-ray shows minimal patchy basilar density, and low lung volumes. Vital signs are stable, she is afebrile temperature 97.9, heart rate 50, respiratory rate is 17, blood pressure 157/57, she's 98% on 4 L via nasal cannula. We'll continue to try to wean off O2, check oxygen saturation off supplemental oxygen, and possible discharge tomorrow 06/08: Patient resting in bed comfortably eating breakfast, in no acute distress. Patient responded well to the Remdesivir and dexamethasone along with the supplements. She denies any shortness of breath, still has slight cough. Repeat chest x-ray shows minimal patchy basilar density, stable from last exam. Patient did well without supplemental oxygen, she'll be discharged home. Encouraged to use the incentive spirometer and continues with ambulation. Will be discharged home with dexamethasone and Ventolin inhaler. Discharge diagnoses 1. covid infection 2. Hypoxemia, secondary to bilateral pneumonia 3. Hypothyroidism 4. Acute kidney injury, secondary dehydration 5. Nausea and vomiting related to Covid 6. Bradycardia The above impression and plan of care have been discussed and directed by signing physician. Criselda Ramirez nurse practitioner acting as scribe for signing physician. Patient Condition at Discharge: Stable Plan - Discharge Summary New Discharge Prescriptions: New Dexamethasone [Decadron] 6 mg PO DAILY #10 tablet Zinc Sulfate [Orazinc] 220 mg PO DAILY cap Albuterol Inhaler [Ventolin Hfa Inhaler] 2 puff INHALATION RT-TID #1 inhaler Ascorbic Acid [Vitamin C] 1,000 mg PO BID tab Continue Cholecalciferol [Vitamin D3 (25 Mcg = 1000 Iu)] 1,000 unit PO DAILY Speed's Wort 300 mg PO DAILY Aspirin 325 mg PO DAILY Cyanocobalamin (Vitamin B-12) [Vitamin B-12] 1,000 mcg PO DAILY Levothyroxine Sodium [Synthroid] 50 mcg PO DAILY Estrogens, Conjugated [Premarin] 0.625 mg PO DAILY amLODIPine BESYLATE [Norvasc] 5 mg PO DAILY Hyoscyamine Sulfate [Levsin] 0.125 mg PO TID PRN PRN Reason: DIGESTION PROBLEMS" Oxybutynin Chloride [Ditropan] 5 mg PO DAILY Ondansetron [Zofran] 4 mg PO Q6H PRN PRN Reason: Nausea Dicyclomine [Bentyl] 20 mg PO DAILY Discharge Medication List Aspirin 325 mg PO DAILY 08/29/17 [History] Cholecalciferol [Vitamin D3 (25 Mcg = 1000 Iu)] 1,000 unit PO DAILY 08/29/17 [History] Cyanocobalamin (Vitamin B-12) [Vitamin B-12] 1,000 mcg PO DAILY 08/29/17 [History] Estrogens, Conjugated [Premarin] 0.625 mg PO DAILY 08/29/17 [History] Hyoscyamine Sulfate [Levsin] 0.125 mg PO TID PRN 08/29/17 [History] Levothyroxine Sodium [Synthroid] 50 mcg PO DAILY 08/29/17 [History] Stan's Wort 300 mg PO DAILY 08/29/17 [History] amLODIPine BESYLATE [Norvasc] 5 mg PO DAILY 08/29/17 [History] Dicyclomine [Bentyl] 20 mg PO DAILY 06/03/20 [History] Ondansetron [Zofran] 4 mg PO Q6H PRN 06/03/20 [History] Oxybutynin Chloride [Ditropan] 5 mg PO DAILY 06/03/20 [History] Albuterol Inhaler [Ventolin Hfa Inhaler] 2 puff INHALATION RT-TID #1 inhaler 06/08/20 [Rx] Ascorbic Acid [Vitamin C] 1,000 mg PO BID tab 06/08/20 [Rx] Dexamethasone [Decadron] 6 mg PO DAILY #10 tablet 06/08/20 [Rx] Zinc Sulfate [Orazinc] 220 mg PO DAILY cap 06/08/20 [Rx] Follow up Appointment(s)/Referral(s): Denny He MD [Primary Care Provider] - 1-2 days (Dr. He's office is closed 06/08/20-06/17/20.) Discharge Disposition: HOME SELF-CARE
[2020-06-08 11:28] VITALS: PULSE 61; RESP 16
--- NOTE | 2020-06-08 12:39 | PN ---
PROGRESS NOTE DATE OF SERVICE: 06/08/2020 REASON FOR FOLLOWUP: COVID-19 pneumonia. INTERVAL HISTORY: The patient is currently afebrile. Patient is breathing comfortably on room air. Patient denies having any chest pain. No shortness of breath. Minimal cough. No nausea, no vomiting. No abdominal pain or diarrhea. PHYSICAL EXAMINATION: Blood pressure is 173/80 with a pulse of 50, temperature 97.6. She is 93% on room air. General description is an elderly female up in the bed in no distress. RESPIRATORY SYSTEM: Unlabored breathing, decreased intensity of breath sounds. No wheeze. HEART: S1, S2. Regular rate and rhythm. ABDOMEN: Soft. No tenderness. LABS: Hemoglobin 13.2, white count 9.1, creatinine 0.88. DIAGNOSTIC IMPRESSION AND PLAN: Patient with acute COVID-19 infection in this patient clinically responding to the remdesivir in addition to dexamethasone, Lovenox and zinc. Finishing therapy with dexamethasone followed by zinc, ascorbic acid and close outpatient followup. MMODL / IJN: [id number] /
== END 2020-06-08 12:22 | disposition home or self-care (01) | DRG 177 ==
LOC: EC 21:11 → 6NMEDSUR 06-04 00:53
PROVIDERS: ADMIT Family Medicine; ATTEND Family Medicine
PROC: XW033E5 Introduction of Remdesivir Anti-infective into Peripheral Vein, Percutaneous Approach, New Technology Group 5 (ICD-10-PCS; principal; 2020-06-04)
DX: U07.1 COVID-19 (principal); J12.89 Other viral pneumonia; N17.9 Acute kidney failure, unspecified; M19.90 Unspecified osteoarthritis, unspecified site; I10 Essential (primary) hypertension; E86.0 Dehydration; E03.9 Hypothyroidism, unspecified; R09.02 Hypoxemia; Z79.899 Other long term (current) drug therapy; Z79.890 Hormone replacement therapy; Z79.82 Long term (current) use of aspirin; Z88.0 Allergy status to penicillin; Z88.2 Allergy status to sulfonamides; Z90.49 Acquired absence of other specified parts of digestive tract; Z90.89 Acquired absence of other organs; Z98.891 History of uterine scar from previous surgery; Z90.710 Acquired absence of both cervix and uterus; Z85.828 Personal history of other malignant neoplasm of skin; Z85.3 Personal history of malignant neoplasm of breast; Z80.0 Family history of malignant neoplasm of digestive organs; Z98.42 Cataract extraction status, left eye; Z98.41 Cataract extraction status, right eye
CPT/HCPCS: 36415; 71045; 71275; 80053; 81003; 82728; 83605; 83615; 83735; 84145; 84439; 84443; 85025; 85379; 85610; 85652; 85730; 86140; 93005; 96365; 96375; 99285